=== PATIENT | male | born 1965 | race Caucasian/White ===

== ENCOUNTER 2020-03-15 09:27 | Outpatient (REF) | payer BC, SELFPAY ==
[2020-03-15 11:21] LABS: MANUAL DIFF FLAG NO
[2020-03-15 11:30] LABS: Basophils Absolute Auto 0.1 X10*3/uL (0.0-0.2); Basophils Percent Auto 0.5 % (0-2); Eosinophils Absolute Auto 0.1 X10*3/uL (0.0-0.4); Hematocrit 46.8 % (42-52); Hemoglobin 16.3 g/dl (14.0-18.0); Imm Gran Abs Auto 0.04 X10*3/uL (0.00-0.03); Imm Gran Pct Auto 0.4 % (0.0-0.4); Lymphocytes Absolute Auto 2.3 X10*3/uL (1.2-4.9); Lymphocytes Percent Auto 23.8 % (20-40); Mean Corpuscular HGB Conc 34.8 g/dl (31.0-36.0); Mean Corpuscular Volume 91.9 fL (80-98); Mean Platelet Volume 8.3 fL (9.4-12.4); Monocytes Absolute Auto 0.7 X10*3/uL (0.1-1.2); Monocytes Percent Auto 6.7 % (2-11); Neutrophils Absolute Auto 6.6 X10*3/uL (2.0-8.3); Neutrophils Percent Auto 67.6 % (45-73); Platelet Count 334 X10*3/uL (160-400); Red Blood Count 5.09 X10*6/uL (4.60-5.80); Red Cell Distribution Width 12.9 % (11.0-16.0); White Blood Count 9.8 X10*3/uL (4.8-10.8)
[2020-03-15 12:30] LABS: Alanine Aminotransferase 15 U/L (0-40); Anion Gap 14 (12-20); Aspartate Amino Transferase 15 U/L (5-37); Blood Urea Nitrogen 7 mg/dL (9-16); Calcium 8.9 mg/dL (8.4-10.2); Carbon Dioxide 27 mmol/L (22-29); Chloride 103 mmol/L (96-108); Cholesterol 145 mg/dL; Estimated Glomerular Filt Rate > 60; Glucose Fasting 78 mg/dL (60-99); HDL Cholesterol 47 mg/dL; LDL Cholesterol Calculated 76 mg/dl; Sodium 140 mmol/L (135-145); Triglycerides 113 mg/dL
[2020-03-15 13:28] LABS: Vitamin B12 166 pg/mL (200-900)
== END 2020-03-15 09:28 | disposition home or self-care (01) ==
LOC: HO.HMGCLDS 09:27
PROVIDERS: PCP Internal Medicine; Visit Provider Internal Medicine
DX: Z00.01 Encounter for general adult medical examination with abnormal findings (principal); K50.812 Crohn's disease of both small and large intestine with intestinal obstruction; F51.01 Primary insomnia; I10 Essential (primary) hypertension
CPT/HCPCS: 36415; 80048; 80061; 82607; 82746; 84450; 84460; 85025

== ENCOUNTER 2021-03-25 09:02 | Outpatient (REF) | payer OTHER, SELFPAY ==
[2021-03-25 12:16] LABS: Alanine Aminotransferase 15 U/L (0-40); Anion Gap 14 (12-20); Aspartate Amino Transferase 14 U/L (5-37); Blood Urea Nitrogen 11 mg/dL (9-16); Calcium 8.9 mg/dL (8.4-10.2); Carbon Dioxide 22 mmol/L (22-29); Chloride 107 mmol/L (96-108); Cholesterol 171 mg/dL; Estimated Glomerular Filt Rate > 60; Glucose Fasting 83 mg/dL (60-99); HDL Cholesterol 49 mg/dL; LDL Cholesterol Calculated 82 mg/dl; Potassium 3.8 mmol/L (3.3-5.1); Sodium 139 mmol/L (135-145); Triglycerides 201 mg/dL
[2021-03-25 12:21] LABS: PSA,Total (Free>4and<10) 1.64 ng/mL (0.00-4.00); Vitamin D 25-OH Total 15.6 ng/mL (>30)
== END 2021-03-25 09:03 | disposition home or self-care (01) ==
LOC: HO.HMGCLDS 09:02
PROVIDERS: PCP Internal Medicine; Visit Provider Internal Medicine
DX: Z00.01 Encounter for general adult medical examination with abnormal findings (principal); Z12.5 Encounter for screening for malignant neoplasm of prostate; Z20.822 Contact with and (suspected) exposure to COVID-19; K50.90 Crohn's disease, unspecified, without complications; G47.00 Insomnia, unspecified; I10 Essential (primary) hypertension
CPT/HCPCS: 36415; 80048; 80061; 82306; 84153; 84450; 84460

== ENCOUNTER 2021-07-16 08:56 | Outpatient (REF) | payer OTHER, SELFPAY ==
[2021-07-16 12:08] LABS: Anion Gap 13 (12-20); Blood Urea Nitrogen 12 mg/dL (9-16); Calcium 9.2 mg/dL (8.4-10.2); Carbon Dioxide 26 mmol/L (22-29); Chloride 104 mmol/L (96-108); Estimated Glomerular Filt Rate > 60; Glucose Fasting 88 mg/dL (60-99); Sodium 139 mmol/L (135-145)
[2021-07-16 12:27] LABS: Folate 7.3 ng/mL (> or = 4.0); Vitamin B12 < 146 pg/mL (200-900)
[2021-07-21 09:01] LABS: SARS COV2 IgG Negative (Negative)
== END 2021-07-16 08:57 | disposition home or self-care (01) ==
LOC: HO.HMGCLDS 08:56
PROVIDERS: PCP Internal Medicine; Visit Provider Internal Medicine
DX: Z00.01 Encounter for general adult medical examination with abnormal findings (principal); G47.00 Insomnia, unspecified; K50.90 Crohn's disease, unspecified, without complications; I10 Essential (primary) hypertension; E55.9 Vitamin D deficiency, unspecified; E53.8 Deficiency of other specified B group vitamins; Z20.822 Contact with and (suspected) exposure to COVID-19
CPT/HCPCS: 36415; 80048; 82607; 82746; 86769

== ENCOUNTER 2022-03-11 07:47 | Outpatient (REF) | payer OTHER, SELFPAY ==
[2022-03-11 12:21] LABS: Alanine Aminotransferase 8 U/L (0-40); Anion Gap 10 (12-20); Aspartate Amino Transferase 12 U/L (5-37); Blood Urea Nitrogen 12 mg/dL (9-16); Carbon Dioxide 28 mmol/L (22-29); Chloride 108 mmol/L (96-108); Cholesterol 144 mg/dL; Estimated Glomerular Filt Rate > 60; Glucose Fasting 86 mg/dL (60-99); HDL Cholesterol 40 mg/dL; LDL Cholesterol Calculated 77 mg/dl; Potassium 3.7 mmol/L (3.3-5.1); Sodium 142 mmol/L (135-145); Triglycerides 139 mg/dL; Vitamin D 25-OH Total 29.3 ng/mL (>30)
[2022-03-11 12:38] LABS: Folate 6.8 ng/mL (> or = 4.0); Vitamin B12 236 pg/mL (200-900)
== END 2022-03-11 07:48 | disposition home or self-care (01) ==
LOC: HO.HMGCLDS 07:47
PROVIDERS: PCP Internal Medicine; Visit Provider Internal Medicine
DX: E53.8 Deficiency of other specified B group vitamins (principal); E55.9 Vitamin D deficiency, unspecified; K50.812 Crohn's disease of both small and large intestine with intestinal obstruction; I10 Essential (primary) hypertension
CPT/HCPCS: 36415; 80048; 80061; 82306; 82607; 82746; 84450; 84460

== ENCOUNTER 2022-03-18 12:24 | Outpatient (AMB) | payer OTHER, SELFPAY ==
--- NOTE | 2022-03-18 13:00 | MHC.PC.OV ---
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 Brother No problems noted. Son No problems noted. Social History Housing: House Alcohol intake: current Alcohol intake frequency: a few times a week Patient Tobacco Use Status: Never used Tobacco e-Cigarette/Vaping Use: Never Used service: No Current occupational status: employed Cognitive needs: No Hearing needs: No Vision needs: Yes Questionnaire Thrive Questionnaire Date Thrive assessed: 07/18/21 STANISLAV-7 AMB Questionnaire STANISLAV-7 Date STANISLAV - 7 assessed: 07/18/21 Source: Developed by Drs. Michael Prakash, Michelle Motley, Jose Tabor and colleagues, with an educational ariel from [employer]. Physical exam (Primary Care) Tobacco/Smoking Status: Tobacco use Status Tobacco use date assessed 07/18/21 07/18/21 14:38 Patient Tobacco Use Status Never used Tobacco 07/18/21 14:35 e-Cigarette/Vaping Use Never Used 07/18/21 14:35 Thrive Assessment: Date of Thrive Assessment Date Thrive assessed 07/18/21 07/18/21 14:44 Coding
--- NOTE | 2022-03-18 13:03 | A.OFFPC_ITS ---
Vital Signs 03/18/22 13:04 Height 5 ft 11 in Weight 214 lb BMI 29.8 BP 122/84 Blood Pressure Location Rt brachial Position Sitting Pulse 78 Pulse Source Pulse Oximeter Pulse Oximetry (%) 96 Oxygen Delivery Method Room Air Intake Visit Reasons: Annual PE Intake Note: Pt is here today for his PE Allergies No Known Allergies Allergy (Verified 05/04/23 09:53) Medication List - Last Reconciled 03/18/22 by Germaine Stark MD cyanocobalamin (vitamin B-12) 1,000 mcg IM QWEEK 3 months lisinopril 5 mg PO DAILY zolpidem ER 12.5 mg PO BEDTIME PRN Tobacco use date assessed: 03/18/22 HPI Annual PE HPI Details 56-year-old male history of Crohn's disease, insomnia, hypertension, vitamin-D and vitamin B12 deficiency, here today for his physical exam. He has been feeling well except for intermittent episodes of posterior headache accompanied by pain in posterior neck, worse after sitting in for the computer for extended periods of time. Patient was receiving chiropractic treatment in the past which has helped. Has been taking ibuprofen as needed which afforded only temporary relief. His vitamin B12 level is now within normal limits, but still experiencing intermittent episodes of numbness and tingling in feet and lower extremities. Blood pressure stable controlled on lisinopril 5 mg daily. Up-to-date with screening colonoscopy [place] [address] Chan, repeat in 10 years. Still having frequent episodes of loose stools, and occasional anal leakage. Has history of central retinal vein occlusion left eye, seen by Dr. Rodriges earlier this year who states that his occlusion has improved, normal findings in right eye Had recent fasting labs done with results as follows below: ENTERED: 03/11/[address]: ORDERED: Met Pro f Fast, AST, ALT, Lipid Panel, Vitam in D 25-OH Test Result Flag Referen ce Sit e Sodium 142 135-145 mmol/L Potassium 3 .7 3.3-5.1 mm ol/L CL 108 96-108 mmol/ L CO2 28 22-29 mmol/L Gap 10 L 12-20 BUN 12 9-16 mg/dL Creat 1.00 0. 5-1.4 mg/dL EGFR > 60 NOTE: Fo r -[place] individuals, mult iply the result by 1.2 10. Chronic Kidney Di sease: Estimated GFR < 60 mL/min/1. 73m2 Severe Kidney Disease: Estimated GFR < 15 mL/min/1.73m2 F BS 8 6 60-99 mg/dL CA 9.0 8.4-10.2 mg/d L AST ( GOT) 12 5-37 U/L ALT (GP T) 8 0-40 U/L Triglycer billy 139 m g/dL Desira ble Triglyceride: less than 15 0 mg/dL Bor derline High Trigl yceride 150-199 m g/dL High T riglyceride: 200-499 mg/d L Very High Triglyceride: greater than or equal to 5OO mg/ dL Chol 144 mg/dL Desirable Cholesterol: less than 200 mg /dL Borderl ine High Cholester ol: 200-239 mg/dL High [place] sterol: greater than 239 mg/dL LDL Calcu lated 77 m g/dl Desira ble LDL: less than 100 mg/dL Near Optimal/Above Optimal LDL: 110 -129 mg/dL Borderline High LD L: 130 -159 mg/dL High LDL: 160 -189 mg/dL Very High LDL: gre ater than or equal to 190 mg/dL HDL 40 mg/dL Desirable HDL : greater than 40 mg/dL Note: Th is HDL assay may g kate artificially low re sults in patients with liver disease . 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 Brother No problems noted. Son No problems noted. Social History Housing: House Alcohol intake: current Alcohol intake frequency: a few times a week Patient Tobacco Use Status: Never used Tobacco e-Cigarette/Vaping Use: Never Used service: No Current occupational status: employed Cognitive needs: No Hearing needs: No Vision needs: Yes Questionnaire PHQ-9 Over the last 2 weeks, how often have you been bothered by any of the following problems? 1. Little interest or pleasure in doing things: not at all 2. Feeling down, depressed, or hopeless: not at all 3. Trouble falling or staying asleep, or sleeping too much: more than half the days 4. Feeling tired or having little energy: not at all 5. Poor appetite or overeating: not at all 6. Feeling bad about yourself - or that you are a failure or have let yourself or your family down: not at all 7. Trouble concentrating on things, such as reading the newspaper or watching television: not at all 8. Moving or speaking so slowly that other people could have noticed. Or the opposite - being so fidgety or restless that you have been moving around a lot more than usual: not at all 9. Thoughts that you would be better off or of hurting yourself in some way: not at all Total score: 2 Depression Screening Interpretation: Negative 52152 - PHQ-9 Billing: Yes Source: Developed by Drs. Michael Prakash, Jose Keane and colleagues, with an educational ariel from [employer]. Thrive Questionnaire Date Thrive assessed: 07/18/21 STANISLAV-7 AMB Questionnaire STANISLAV-7 Date STANISLAV - 7 assessed: 07/18/21 Source: Developed by Drs. Michael Prakash, Jose Keane and colleagues, with an educational ariel from [employer]. Review of Systems Const Denies body aches, Denies fatigue, Denies fever(s), Denies lethargy and Denies weakness Eyes Reports change in vision, Denies eye discharge and Denies itchy eyes ENT Reports Normal hearing present, Denies dizziness, Denies nasal congestion, Den ies nasal discharge and Denies sore throat Card Denies chest pain, Denies lightheadedness, Denies palpitations and Denies dyspnea Resp Denies chest congestion, Denies cough, Denies dyspnea and Denies wheezing GI Denies abdominal pain, Denies change in bowel habits and Denies heartburn Denies dysuria, Denies urinary frequency and Denies urinary urgency Musc Reports as per HPI Skin/Breast Denies lesions and Denies rash Neuro Reports Normal hearing present, Denies dizziness, Denies Sensory deficit (Neuro) and Denies weakness Psych Reports no additional complaints Endo Denies fatigue, Denies polydipsia, Denies polyuria and Denies palpitations Jose/Lymph Denies easy bruising Aller/Immun Denies itchy eyes, Denies seasonal rhinorrhea and Denies wheezing Physical exam (Primary Care) Vital Signs: Last Vital Signs Pulse 78 03/18/22 13:04 BP 122/84 03/18/22 13:04 Pulse Ox 96 03/18/22 13:04 Oxygen Delivery Method Room Air 03/18/22 13:04 BMI result Body Mass Index 29.8 Tobacco/Smoking Status: Tobacco use Status Tobacco use date assessed 03/18/22 03/18/22 13:05 Patient Tobacco Use Status Never used Tobacco 03/18/22 13:05 e-Cigarette/Vaping Use Never Used 03/18/22 13:05 PHQ-9: PHQ-9 Score PHQ-9: Total score 2 04/09/22 04:54 Depression Screening Interpretation: Negative Thrive Assessment: Date of Thrive Assessment Date Thrive assessed 07/18/21 03/18/22 13:05 Const General: comfortable and no acute distress Nutritional Appearance: obese Orientation/consciousness: patient oriented x3 HENMT Other: Moist oral mucosa Neck Neck: Yes full ROM, Yes no lymphadenopathy and Yes supple Resp Auscultation: clear to auscultation bilaterally Cardio Other: S1-S2 present regular rate and rhythm GI Other: Normal bowel sounds, soft, nontender, no mass palpated Male General Exam: Yes normal external exam Back/Spine/Pelvis Other: slight tenderness on palpation over paraspinal muscles and cervical area and over left interscapular area, full range of motion noted Skin General skin exam: no rashes or lesions noted Neuro General: patient oriented x3 Cranial nerves: Yes Normal hearing present Sensory Exam: No Sensory deficit (Neuro) Extrem General: Yes full ROM, Yes no joint enlargement and Yes no pedal edema Psych Appearance: grossly normal and well kempt Mental Status: mental status grossly normal Speech and movement: Normal speech and movement present Affect: normal affect Attitude: cooperative Thought process: Normal thought process present Assessment and Plan Assessment & Plan (1) Annual visit for general adult medical examination with abnormal findings: Code(s): Z00.01 - Encounter for general adult medical examination with abnormal findings Plan: Reviewed recent fasting labs which showed normal lipids and fasting blood sugar levels, low normal vitamin D level and normal vitamin B12 level. Continue with regular dental visit every 6 months and regular eye exams, currently being seen by Dr. Rodriges.. Take adequate calcium in diet and vitamin-D 3 at 2000 IU per cap once a day, in addition to weight-bearing exercises to help aintain good muscle tone and weight control. Instructed to do self-testicular exam to check for mass. Is up-to-date with his COVID vaccine including the bivalent booster, up-to-date with his flu shot and Tdap, (2) Crohn's disease: Comment: ff'd by Dr pettit/Dustin, currently asymptomatic except for some mucous discharge mixing occasionally with bowel movement Code(s): K50.90 - Crohn's disease, unspecified, without complications Qualifiers: Digestive disease complication type: with intestinal obstruction Gastrointestinal tract location: small and large intestine Qualified Code(s): K50.812 - Crohn's disease of both small and large intestine with intestinal obstruction Plan: Currently being followed by Dr. Chan up-to-date with his colonoscopy (3) Insomnia: Code(s): G47.00 - Insomnia, unspecified Qualifiers: Insomnia type: primary Qualified Code(s): F51.01 - Primary insomnia Plan: Takes zolpidem ER as needed (4) Essential hypertension: Code(s): I10 - Essential (primary) hypertension Plan: Blood pressure at goal of less than 130/80. Continue with current medication. Reinforced importance of following a low sodium diet, getting regular exercise, and lowering stress levels. (5) Vitamin D deficiency: Code(s): E55.9 - Vitamin D deficiency, unspecified Plan: Advised to take vitamin-D 3, qepr-agl-faejjbi 2000 units per tablet once a day (6) Vitamin B12 deficiency: Code(s): E53.8 - Deficiency of other specified B group vitamins Plan: Continue with vitamin B12 supplementation IM every week (7) Cervicalgia: Code(s): M54.2 - Cervicalgia Plan: Referred to physical therapy for further evaluation and management. Take Tylenol 500 mg every 8 hours as needed for pain control, try applying Salonpas patch to affected areas twice a day as needed. Medications: Changed From cyanocobalamin (vitamin B-12) 1,000 mcg IM QWEEK 4 weeks 4 mL 2RF E53.8 - Deficiency of other specified B group vitamins To cyanocobalamin (vitamin B-12) 1,000 mcg IM QWEEK 13 mL 4RF 3 months E53.8 - Deficiency of other specified B group vitamins Coding Level of Care Code Est Pt Prev Care 40-64y(73029) Diagnoses Annual visit for general adult medical examination with abnormal findings Z00.01 Crohn's disease of both small and large intestine with intestinal obstruction K50.812 Digestive disease complication type: with intestinal obstruction Gastrointestinal tract location: small and large intestine Primary insomnia F51.01 Insomnia type: primary Essential hypertension I10 Vitamin D deficiency E55.9 Vitamin B12 deficiency E53.8 Cervicalgia M54.2
[2022-03-18 13:04] VITALS: BP 122/84; PULSE 78; O2SAT 96; BMI 29.8
== END 2022-03-18 13:28 | disposition home or self-care (01) ==
LOC: HO.HMGC 12:24
PROVIDERS: PCP Internal Medicine; Visit Provider Internal Medicine
DX: Z00.01 Encounter for general adult medical examination with abnormal findings (principal); K50.812 Crohn's disease of both small and large intestine with intestinal obstruction; F51.01 Primary insomnia; I10 Essential (primary) hypertension; E55.9 Vitamin D deficiency, unspecified; E53.8 Deficiency of other specified B group vitamins; M54.2 Cervicalgia
CPT/HCPCS: 99499

== ENCOUNTER 2022-05-13 09:00 | Outpatient (RCR) | payer OTHER, SELFPAY ==
--- NOTE | 2022-04-15 08:41 | MHC.PT.EP ---
[facility] [place] Office [place] Office [place] Office [address] Alphonso Dias [address] [phone] F: [phone] F: [phone] F: [phone] F: [phone] Physical Therapy Plan of Care Date of Evaluation: Date of Surgery: n/a Diagnosis: cervicalgia Assessment: Patient is a 56 year male presenting to PT with complaints of pain in his neck with headaches. Pt reports onset of pain began about 1 year ago due to insidious onset. He presents today with impairments in pain, headaches, numbness and tingling, and posture. 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 Clinical presentation today is most consistent with signs and sx associated with headaches likely due to myofascial restrictions and pt will benefit from skilled PT to address the following problems and impairments noted upon evaluation: pain, headaches, numbness and tingling, and posture. These problems limit the patient with the following functional activities: ADLs, work. The prescribed treatment plan of care is medically necessary. Co-morbidities of HTN were identified and taken into considerations of plan of care. Pt was educated on HEP, role of PT, prognosis, POC. Frequency and Duration: The patient will be seen 2 x week x 4 weeks Short Term Goals: Pt will demonstrate compliance with initial HEP in 2 visits. Pt will demonstrate improved postural awareness by sitting with biomechanically correct posture without cues throughout session to improve overall postural function in 2 weeks. Pt will demonstrate less incidence of numbness and tingling in 2 weeks. Shelter Goals: Pt will demonstrate improved NDI score by 10% in 4 weeks for improved functional mobility. Pt will demonstrate improved headaches as evidence by waking with a headache <2 times a week in 4 weeks for improved QOL. Treatment Plan: Modalities to reduce pain, spasms and effusion. Manual therapy to restore motion and function. Therapeutic exercise to improve strength and flexibility. Neuromuscular re-education for posture and balance. Therapeutic activities to return to functional activities of daily living. Electronically signed by: Bernadette Heredia, PT, DPT, ATC Please sign and return to therapist. Thank you for your referral.
--- NOTE | 2022-06-12 13:10 | MHC.PT.DC ---
[facility] [place] Office [place] Office [place] Office [address] Alphonso Dias [address] [phone] F: [phone] F: [phone] F: [phone] F: [phone] Physical Therapy Discharge Report Diagnosis: cervicalgia Date of Surgery: n/a Date of Evaluation: 04/15/22 Date of Discharge: 06/12/22 Treatments to Date: 5 Cancellations to Date: 0 No Shows to Date: 0 Discharge Status: Achieved Goals Improved Function Independent with HEP Discharge Summary: Pt was placed on 30 day hold as he was feeling better and wanted to manage sx on his own. 30 days has passed and he has not returned so pt to be d/c at this time. Electronically signed by: Bernadette Heredia, PT, DPT, ATC Please sign and return to therapist. Thank you for your referral.
== END 2022-06-12 13:11 | disposition home or self-care (01) ==
LOC: HO.PTCHIC 09:00
PROVIDERS: PCP Internal Medicine; Visit Provider Internal Medicine
DX: M54.2 Cervicalgia (principal)
CPT/HCPCS: 97110; 97140; 97161

== ENCOUNTER 2023-05-04 08:56 | Outpatient (AMB) | payer OTHER, SELFPAY ==
--- NOTE | 2023-05-04 09:07 | A.OFFPC_ITS ---
Vital Signs 05/04/23 09:09 Height 5 ft 11 in Weight 219 lb 4 oz BMI 30.6 BP 126/88 Blood Pressure Location Lt brachial Position Sitting Pulse 73 Pulse Source Pulse Oximeter Pulse Oximetry (%) 98 Oxygen Delivery Method Room Air Intake Visit Reasons: Annual PE Allergies No Known Allergies Allergy (Verified 05/04/23 09:53) Medication List - Last Reconciled 05/04/23 by Germaine Stark MD lisinopril 5 mg PO DAILY Tobacco use date assessed: 05/04/23 Dental Screening Dental Screen Date: 05/04/23 Did you have a dental visit in the last 12 months?: Yes Did you have a dental problem in the last 6 months where you did not have access to dental care?: No Was dental information given to patient?: Patient has dentist HPI Annual PE HPI Details 57-year-old male with Crohn's disease cu rrently followed by GI, hypertension, history of vitamin-D deficiency and vitamin B12 deficiency as well as 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 He has still been having occasional episodes of insomnia, but uses CBD gummy and stopped using zolpidem he states that both work the same way. He has stopped giving himself his vitamin B12 injections, keeps forgetting to schedule an appointment to get it injected. His blood pressure remains well controlled . [facility] Medical History Vitamin B12 deficiency Vitamin D deficiency Essential hypertension Hemispheric central retinal vein occlusion (CRVO) of left eye Insomnia Crohn's disease Surgical History H/O resection of small bowel History of colonoscopy History of appendectomy History of vasectomy Family History Father CVD (cardiovascular disease) Mother Stroke Diabetes mellitus Brother No problems noted. Brother No problems noted. Son No problems noted. Social History Housing: House Alcohol intake: current Alcohol intake frequency: a few times a week Patient Tobacco Use Status: Never used Tobacco e-Cigarette/Vaping Use: Never Used service: No Current occupational status: employed Cognitive needs: No Hearing needs: No Vision needs: Yes Questionnaire PHQ-9 Over the last 2 weeks, how often have you been bothered by any of the following problems? 1. Little interest or pleasure in doing things: not at all 2. Feeling down, depressed, or hopeless: not at all 3. Trouble falling or staying asleep, or sleeping too much: more than half the days 4. Feeling tired or having little energy: not at all 5. Poor appetite or overeating: not at all 6. Feeling bad about yourself - or that you are a failure or have let yourself or your family down: not at all 7. Trouble concentrating on things, such as reading the newspaper or watching television: not at all 8. Moving or speaking so slowly that other people could have noticed. Or the opposite - being so fidgety or restless that you have been moving around a lot more than usual: not at all 9. Thoughts that you would be better off or of hurting yourself in some way: not at all Total score: 2 Depression Screening Interpretation: Negative Depression Screening Done: Yes 60299 - PHQ-9 Billing: Yes Source: Developed by Drs. Michael Prakash, Michelle Motley, Jose Tabor and colleagues, with an educational ariel from [employer]. Thrive Questionnaire Date Thrive assessed: 05/04/23 I am a: Patient What is your living situation today?: I have a steady place to live Within the past 12 months, did the food you bought not last and you didn't have the money to get more?: Never true Within the past 12 months, did you worry whether your food would run out before you got money to buy more?: Never true Do you have trouble paying for medicines?: No Do you have trouble getting transportation to medical appointments?: No Do you have trouble paying your heating and electricity bill?: No Do you have trouble taking care of your child, family member or friend?: No Do you have trouble with day-to-day activities such as bathing, preparing meals, shopping, managing finances, etc.?: No Are you currently unemployed and looking for a job?: No Are you interested in more education?: No AUDIT C Alcohol Use Questionnaire (AUDIT-C) 1. How often do you have a drink containing alcohol?: Monthly or less 2. How many drinks containing alcohol do you have on a typical day when you are drinking?: 1 or 2 3. How often do you have six or more drinks on one occasion?: Never Total Score: 1 Score Reviewed/Action Taken: Yes STANISLAV-7 AMB Questionnaire STANISLAV-7 Date STANISLAV - 7 assessed: 05/04/23 Feeling nervous, anxious, or on edge: 0 = Not at all Not being able to stop or control worryin = Not at all Worrying too much about different things: 0 = Not at all Trouble relaxin = Not at all Being so restless that it is hard to sit still: 0 = Not at all Becoming easily annoyed or irritable: 0 = Not at all Feeling afraid as if something awful might happen: 0 = Not at all Total STANISLAV-7 score (0-4 normal; 5-9 mild; 10-14 moderate; 15-21 severe): 0 Source: Developed by Drs. Michael Prakash, Michelle Motley, Jose Tabor and colleagues, with an educational ariel from [employer]. STANISLAV-7 Assessment Billing STANISLAV-7 Assessment Tool: STANISLAV-7 Assessment 36244 Review of Systems Const Denies body aches, Denies fatigue, Denies fever(s), Denies lethargy and Denies weakness Eyes Denies eye discharge and Denies itchy eyes ENT Reports Normal hearing present, Denies dizziness, Denies nasal congestion, Denies nasal discharge and Denies sore throat Card Denies chest pain, Denies lightheadedness, Denies palpitations and Denies dyspnea Resp Denies chest congestion, Denies cough, Denies dyspnea and Denies wheezing GI Denies abdominal pain, Denies change in bowel habits and Denies heartburn Denies dysuria, Denies urinary frequency and Denies urinary urgency Musc Denies back pain, Reports arthralgias (knees ), Denies joint swelling and Reports stiffness Skin/Breast Denies lesions and Denies rash Neuro Reports Normal hearing present, Denies dizziness, Denies Sensory deficit (Neuro) and Denies weakness Psych Reports no additional complaints Endo Denies fatigue, Denies polydipsia, Denies polyuria and Denies palpitations Jose/Lymph Denies easy bruising Aller/Immun Denies itchy eyes, Denies seasonal rhinorrhea and Denies wheezing Physical exam (Primary Care) Vital Signs: Last Vital Signs Pulse 73 05/04/23 09:09 BP 126/88 05/04/23 09:09 Pulse Ox 98 05/04/23 09:09 Oxygen Delivery Method Room Air 05/04/23 09:09 BMI result Body Mass Index 30.6 Tobacco/Smoking Status: Tobacco use Status Tobacco use date assessed 05/04/23 05/04/23 09:12 Patient Tobacco Use Status Never used Tobacco 05/04/23 09:09 e-Cigarette/Vaping Use Never Used 05/04/23 09:09 Depression Screening Interpretation: Negative Thrive Assessment: Date of Thrive Assessment Date Thrive assessed 07/18/21 05/04/23 09:09 Const General: comfortable and no acute distress Nutritional Appearance: obese Orientation/consciousness: patient oriented x3 HENMT Other: Moist oral mucosa Eyes General: appearance normal, both eyes and all related structures Neck Neck: Yes full ROM, Yes no lymphadenopathy and Yes supple Chest Chest palpation & inspection: normal inspection of the chest Resp Auscultation: clear to auscultation bilaterally Cardio Other: S1-S2 present regular rate and rhythm GI Other: Normal bowel sounds, soft, nontender, no mass palpated General: Yes no CVA tenderness Male General Exam: Yes normal external exam Back/Spine/Pelvis Back: no CVA tenderness and No back tenderness Skin General skin exam: no rashes or lesions noted Neuro General: patient oriented x3 Cranial nerves: Yes Normal hearing present Sensory Exam: No Sensory deficit (Neuro) Extrem General: Yes full ROM, Yes no joint enlargement and Yes no pedal edema Psych Appearance: grossly normal and well kempt Mental Status: mental status grossly normal Speech and movement: Normal speech and movement present Affect: normal affect Attitude: cooperative Thought process: Normal thought process present Assessment and Plan Assessment & Plan (1) Annual visit for general adult medical examination with abnormal findings: Code(s): Z00.01 - Encounter for general adult medical examination with abnormal findings Plan: Will check appropriate labs. Continued regular dental visit every 6 months and regular eye exams, at least every 2 years. Take adequate calcium in diet and vitamin-D 3 at 2000 IU per cap once a day, in addition to weight-bearing exercises to help maintain good muscle tone and weight control. Instructed to do testicular exam to check for any mass up-to-date is vaccines but declines getting COVID vaccination booster. Reminded to get his shingles vaccination. Up-to-date with his screening colonoscopy (2) Vitamin B12 deficiency: Code(s): E53.8 - Deficiency of other specified B group vitamins Plan: Will check vitamin B12 level (3) Essential hypertension: Code(s): I10 - Essential (primary) hypertension Plan: Blood pressure at goal of less than 130/80. Continue with current medication. Reinforced importance of following a low sodium diet, getting regular exercise, and lowering stress levels. (4) Crohn's disease: Comment: ff'd by Dr pettit/Dustin, currently asymptomatic except for some mucous discharge mixing occasionally with bowel movement Code(s): K50.90 - Crohn's disease, unspecified, without complications Qualifiers: Digestive disease complication type: with intestinal obstruction Gastrointestinal tract location: small and large intestine Qualified Code(s): K50.812 - Crohn's disease of both small and large intestine with intestinal obstruction Plan: Up-to-date with his screening colonoscopy, sees Dr. Castrejon (5) Vitamin D deficiency: Code(s): E55.9 - Vitamin D deficiency, unspecified Plan: Will check vitamin-D level (6) Prostate cancer screening: Code(s): Z12.5 - Encounter for screening for malignant neoplasm of prostate Plan: Total PSA and free T4 Orders: Orders Complete Blood Count Auto Diff 05/04/23 E53.8 - Deficiency of other specified B group vitamins, E55.9 - Vitamin D deficiency, unspecified, I10 - Essential (primary) hypertension, K50.90 - Crohn's disease, unspecified, without complications, Z00.01 - Encounter for general adult medical examination with abnormal findings, Z12.5 - Encounter for screening for malignant neoplasm of prostate Vitamin B12 and Folate 05/04/23 E53.8 - Deficiency of other specified B group vitamins, E55.9 - Vitamin D deficiency, unspecified, I10 - Essential (primary) hypertension, K50.90 - Crohn's disease, unspecified, without complications, Z00.01 - Encounter for general adult medical examination with abnormal findings, Z12.5 - Encounter for screening for malignant neoplasm of prostate Vitamin D 25-OH Total 05/04/23 E53.8 - Deficiency of other specified B group vitamins, E55.9 - Vitamin D deficiency, unspecified, I10 - Essential (primary) hypertension, K50.90 - Crohn's disease, unspecified, without complications, Z00.01 - Encounter for general adult medical examination with abnormal findings, Z12.5 - Encounter for screening for malignant neoplasm of prostate Basic Metabolic Panel Fasting 05/04/23 E53.8 - Deficiency of other specified B group vitamins, E55.9 - Vitamin D deficiency, unspecified, I10 - Essential (primary) hypertension, K50.90 - Crohn's disease, unspecified, without complications, Z00.01 - Encounter for general adult medical examination with abnormal findings, Z12.5 - Encounter for screening for malignant neoplasm of prostate PSA,Total (Free>4and<10) 05/04/23 E53.8 - Deficiency of other specified B group vitamins, E55.9 - Vitamin D deficiency, unspecified, I10 - Essential (primary) hypertension, K50.90 - Crohn's disease, unspecified, without complications, Z00.01 - Encounter for general adult medical examination with abnormal findings, Z12.5 - Encounter for screening for malignant neoplasm of prostate Lipid Panel 05/04/23 E53.8 - Deficiency of other specified B group vitamins, E55.9 - Vitamin D deficiency, unspecified, I10 - Essential (primary) hypertension, K50.90 - Crohn's disease, unspecified, without complications, Z00.01 - Encounter for general adult medical examination with abnormal findings, Z12.5 - Encounter for screening for malignant neoplasm of prostate Alanine Aminotransferase 05/04/23 E53.8 - Deficiency of other specified B group vitamins, E55.9 - Vitamin D deficiency, unspecified, I10 - Essential (primary) hypertension, K50.90 - Crohn's disease, unspecified, without complications, Z00.01 - Encounter for general adult medical examination with abnormal findings, Z12.5 - Encounter for screening for malignant neoplasm of prostate Aspartate Amino Transferase 05/04/23 E53.8 - Deficiency of other specified B group vitamins, E55.9 - Vitamin D deficiency, unspecified, I10 - Essential (primary) hypertension, K50.90 - Crohn's disease, unspecified, without complications, Z00.01 - Encounter for general adult medical examination with abnormal findings, Z12.5 - Encounter for screening for malignant neoplasm of prostate Coding Level of Care Code Est Pt Prev Care 40-64y(40276) Diagnoses Annual visit for general adult medical examination with abnormal findings Z00.01 Vitamin B12 deficiency E53.8 Essential hypertension I10 Crohn's disease of both small and large intestine with intestinal obstruction K50.812 Digestive disease complication type: with intestinal obstruction Gastrointestinal tract location: small and large intestine Vitamin D deficiency E55.9 Prostate cancer screening Z12.5 Additional Codes STANISLAV-7 Assessment Billing - STANISLAV-7 Assessment Tool: STANISLAV-7 Assessment [id number] ([id number])
[2023-05-04 09:09] VITALS: BP 126/88; PULSE 73; O2SAT 98; BMI 30.6
== END 2023-05-04 11:57 | disposition home or self-care (01) ==
PROVIDERS: PCP Internal Medicine; Visit Provider Internal Medicine
DX: Z00.00 Encounter for general adult medical examination without abnormal findings (principal); K50.812 Crohn's disease of both small and large intestine with intestinal obstruction; E53.8 Deficiency of other specified B group vitamins; I10 Essential (primary) hypertension; E55.9 Vitamin D deficiency, unspecified; Z12.5 Encounter for screening for malignant neoplasm of prostate
CPT/HCPCS: 99396

== ENCOUNTER 2023-05-04 09:52 | Outpatient (REF) | payer OTHER, SELFPAY | END 2023-05-04 09:53 | disposition home or self-care (01) | LOC: HO.HMGCLDS 09:52 | PROVIDERS: PCP Internal Medicine; Visit Provider Internal Medicine | DX: Z00.01 Encounter for general adult medical examination with abnormal findings (principal); Z12.5 Encounter for screening for malignant neoplasm of prostate; I10 Essential (primary) hypertension; E53.8 Deficiency of other specified B group vitamins; E55.9 Vitamin D deficiency, unspecified; K50.90 Crohn's disease, unspecified, without complications | CPT/HCPCS: 36415; 80048; 80061; 82306; 82607; 82746; 84153; 84450; 84460; 85025 ==

== ENCOUNTER 2023-08-07 13:36 | Outpatient (AMB) | payer OTHER, SELFPAY ==
[2023-08-07 14:36] VITALS: BP 128/76; PULSE 75; TEMP 36.8; O2SAT 98; BMI 32.5
--- NOTE | 2023-08-07 14:36 | MHC.OFFWIV ---
Intake Vital Signs 08/07/23 14:36 Height 5 ft 11 in Weight 233 lb BMI 32.5 BP 128/76 Blood Pressure Location Lt brachial Position Sitting Pulse 75 Pulse Source Pulse Oximeter Temp 98.2 F Temp Source Oral Pulse Oximetry (%) 98 Oxygen Delivery Method Room Air Intake Visit Reasons: Forearm, shoulder, back muscle pain (Lyme?) Intake Note: pt is here for c/o forearm and shoulder pain with headaches concern of possible lyme disease Patient Tobacco Use Status: Never used Tobacco Allergies No Known Allergies Allergy (Verified 08/07/23 14:38) Do you need a note to return to daycare/school/sports/work: No HPI HPI Comments History of Present Illness Details 58-year-old male complaining of myalgias in his forearms back shoulders for a week. He is concerned he might have Lyme as he was doing a lot of yd work and requested tests. He denies noticing any rash. [facility] Medical History Vitamin B12 deficiency Vitamin D deficiency Essential hypertension Hemispheric central retinal vein occlusion (CRVO) of left eye Insomnia Crohn's disease Surgical History H/O resection of small bowel History of colonoscopy History of appendectomy History of vasectomy Family History Father CVD (cardiovascular disease) Mother Stroke Diabetes mellitus Brother No problems noted. Brother No problems noted. Son No problems noted. Social History Housing: House Alcohol intake: current Alcohol intake frequency: a few times a week Patient Tobacco Use Status: Never used Tobacco e-Cigarette/Vaping Use: Never Used service: No Current occupational status: employed Cognitive needs: No Hearing needs: No Vision needs: Yes Review of Systems Const All systems reviewed & are unremarkable except as noted in HPI and below Physical Exam Vital Signs: Last Vital Signs Temp 98.2 F 08/07/23 14:36 Pulse 75 08/07/23 14:36 BP 128/76 08/07/23 14:36 Pulse Ox 98 08/07/23 14:36 Oxygen Delivery Method Room Air 08/07/23 14:36 BMI result Body Mass Index 32.5 Const General: healthy appearing and no acute distress HEENT Head: Yes normal to inspection, Yes normocephalic and Yes atraumatic Ears: hearing grossly normal bilaterally General nose exam: Normal external nose present Face and sinus: Yes normal facial exam Assessment & Plan Assessment & Plan (1) Myalgia: Code(s): M79.10 - Myalgia, unspecified site Plan: The patient had lab work drawn today for line. They will follow up when the results return Plan See plan Orders: Orders Lyme IgG/IgM w/reflex to WB Today M79.10 - Myalgia, unspecified site Coding Level of Care Code Est Pt Level 3 (73886) Diagnoses Myalgia M79.10
== END 2023-08-07 15:25 | disposition home or self-care (01) ==
PROVIDERS: PCP Internal Medicine; Visit Provider Physician Assistant Medical
DX: M79.10 Myalgia, unspecified site (principal)
CPT/HCPCS: 99213

== ENCOUNTER 2023-08-07 14:55 | Outpatient (REF) | payer OTHER, SELFPAY ==
[2023-08-10 17:43] LABS: Lyme Abs Screen <0.90 index
== END 2023-08-07 14:56 | disposition home or self-care (01) ==
LOC: HO.HMGCLDS 14:55
PROVIDERS: PCP Internal Medicine; Visit Provider Physician Assistant Medical
DX: M79.10 Myalgia, unspecified site (principal)
CPT/HCPCS: 36415; 86617; 86618

== ENCOUNTER 2023-09-08 08:20 | Outpatient (AMB) | payer OTHER, SELFPAY ==
[2023-09-08 08:39] VITALS: BP 102/74; PULSE 65; O2SAT 98; BMI 32.1
--- NOTE | 2023-09-08 08:39 | MHC.PC.OV ---
Vital Signs 09/08/23 08:39 Height 5 ft 11 in Weight 230 lb BMI 32.1 BP 102/74 Blood Pressure Location Lt brachial Position Sitting Pulse 65 Pulse Source Pulse Oximeter Pulse Oximetry (%) 98 Oxygen Delivery Method Room Air Intake Visit Reasons: Joint pain Intake Note: Pt is here today c/o joint pain and H/A Allergies No Known Allergies Allergy (Verified 09/08/23 09:08) Medication List - Last Reconciled 09/08/23 by Germaine Stark MD celecoxib 200 mg PO DAILY PRN cyanocobalamin (vitamin B-12) 1,000 mcg IM .[id number] 3 months eszopiclone 2 mg PO BEDTIME PRN lisinopril 5 mg PO DAILY syringe with needle, safety (BD SafetyGlide Syringe) As directed to inject B-12 monthly Tobacco use date assessed: 09/08/23 Dental Screening Dental Screen Date: 09/08/23 Did you have a dental visit in the last 12 months?: Yes Did you have a dental problem in the last 6 months where you did not have access to dental care?: No Was dental information given to patient?: Patient has dentist HPI Joint pain HPI Details 58-year-old male with history of Crohn's disease, vitamin B12 and vitamin-D deficiency, hypertension, here today complaining of recurrent pain in both elbow joints, the right more than the left which has been present now for the last 4 weeks. He has been taking ibuprofen which affords only partial relief. Denies any history of no heavy lifting or strenuous exertion. Has vitamin B12 deficiency, needs refills on his B12 and syringes. Just recently started taking it again April 2023 Has history of hypertension currently on lisinopril 5 mg once a day. Patient states that he frequently forgets taking it, did not take it this morning and his blood pressure is 102/74. Does get occasional episodes of lightheadedness and headache mainly in temporal area. Has history of bruxism Has been having difficulty sleeping at night, which is a chronic issue, previously was on zolpidem which stopped working. 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 Brother No problems noted. Son No problems noted. Social History Housing: House Alcohol intake: current Alcohol intake frequency: a few times a week Patient Tobacco Use Status: Never used Tobacco e-Cigarette/Vaping Use: Never Used service: No Current occupational status: employed Cognitive needs: No Hearing needs: No Vision needs: Yes Questionnaire Thrive Questionnaire Date Thrive assessed: 05/04/23 STANISLAV-7 AMB Questionnaire STANISLAV-7 Date STANISLAV - 7 assessed: 05/04/23 Source: Developed by Drs. Michael Prakash, Michelle Motley, Jose Tabor and colleagues, with an educational ariel from [email or web address]. Review of Systems Const Denies body aches, Denies fatigue, Denies fever(s), Denies lethargy and Denies weakness ENT Reports Normal hearing present, Denies nasal congestion, Denies nasal discharge and Denies sore throat Card Denies chest pain, Reports lightheadedness (Occasional), Denies palpitations and Denies dyspnea Resp Denies chest congestion, Denies cough, Denies dyspnea and Denies wheezing GI Denies abdominal pain, Denies change in bowel habits and Denies heartburn Denies dysuria, Denies urinary frequency and Denies urinary urgency Musc Reports as per HPI, Reports back pain (Lower back) and Reports stiffness Skin/Breast Denies lesions and Denies rash Neuro Reports Normal hearing present, Denies Sensory deficit (Neuro) and Denies weakness Psych Reports no additional complaints Endo Denies fatigue, Denies polydipsia, Denies polyuria and Denies palpitations Jose/Lymph Denies easy bruising Aller/Immun Denies seasonal rhinorrhea and Denies wheezing Physical exam (Primary Care) Vital Signs: Last Vital Signs Pulse 65 09/08/23 08:39 BP 102/74 09/08/23 08:39 Pulse Ox 98 09/08/23 08:39 Oxygen Delivery Method Room Air 09/08/23 08:39 BMI result Body Mass Index 32.1 Tobacco/Smoking Status: Tobacco use Status Tobacco use date assessed 09/08/23 09/08/23 08:42 Patient Tobacco Use Status Never used Tobacco 09/08/23 08:42 e-Cigarette/Vaping Use Never Used 09/08/23 08:42 Thrive Assessment: Date of Thrive Assessment Date Thrive assessed 05/04/23 09/08/23 08:42 Const General: comfortable and no acute distress Orientation/consciousness: patient oriented x3 Eyes General: appearance normal, both eyes and all related structures Neck Neck: Yes full ROM, Yes no lymphadenopathy and Yes supple Chest Chest palpation & inspection: normal inspection of the chest Resp Auscultation: clear to auscultation bilaterally Cardio Other: S1-S2 present regular rate and rhythm GI Other: Normal bowel sounds, soft, nontender, no mass palpated General: Yes no CVA tenderness Male General Exam: Yes normal external exam Back/Spine/Pelvis Back: no CVA tenderness and No back tenderness Skin General skin exam: no rashes or lesions noted Neuro General: patient oriented x3 Cranial nerves: Yes Normal hearing present Sensory Exam: No Sensory deficit (Neuro) Extrem Other: Mild swelling over forearm right more than the left, with tenderness on palpation, full range of motion of both elbows General: Yes full ROM and Yes no pedal edema Psych Appearance: grossly normal and well kempt Mental Status: mental status grossly normal Speech and movement: Normal speech and movement present Affect: normal affect Attitude: cooperative Thought process: Normal thought process present Assessment and Plan Assessment & Plan (1) Vitamin D deficiency: Code(s): E55.9 - Vitamin D deficiency, unspecified Plan: Will check vitamin D level (2) Vitamin B12 deficiency: Code(s): E53.8 - Deficiency of other specified B group vitamins Plan: Check vitamin B12 level, continue with B12 injections monthly refill sent (3) Essential hypertension: Code(s): I10 - Essential (primary) hypertension Plan: Blood pressure noted to be on the low side. Advised to check blood pressure at home keep a record of it and if persistently less than 120/80 and getting lightheaded, stop lisinopril (4) Pain, joint, forearm: Code(s): M25.539 - Pain in unspecified wrist Plan: Prescription sent for celecoxib 200 mg per capsule to take once a day with food as needed for pain, try massaging absorbent teresa to affected area once or twice a day as needed. Return to clinic if no improvement of symptoms (5) Chronic insomnia: Code(s): F51.04 - Psychophysiologic insomnia Plan: No relief with Ambien, prescription sent for eszopiclone 2 mg per tablet to take 1 tablet as needed at bedtime for insomnia. Twenty tablets with no refills Orders: Orders Vitamin B12 and Folate Today E53.8 - Deficiency of other specified B group vitamins, E55.9 - Vitamin D deficiency, unspecified Vitamin D 25-OH Total Today E53.8 - Deficiency of other specified B group vitamins, E55.9 - Vitamin D deficiency, unspecified Medications: New celecoxib 200 mg PO DAILY PRN 30 caps 1RF elbow pain eszopiclone 2 mg PO BEDTIME PRN 20 tabs 0RF insomnia Changed From cyanocobalamin (vitamin B-12) 1,000 mcg/ml intramuscularly. Inject 1 mL once a week for 4 weeks and then once monthly afterwards 3 months 13 mL 4RF E53.8 - Deficiency of other specified B group vitamins To cyanocobalamin (vitamin B-12) Inject IM once a month 1,000 mcg IM .[id number] 3 months 10 mL 4RF E53.8 - Deficiency of other specified B group vitamins Refilled syringe with needle, safety (BD SafetyGlide Syringe) As directed to inject B-12 monthly 5 ea 8RF E53.8 - Deficiency of other specified B group vitamins Coding Level of Care Code Est Pt Level 4 (43617) Diagnoses Vitamin D deficiency E55.9 Vitamin B12 deficiency E53.8 Essential hypertension I10 Pain, joint, forearm M25.539 Chronic insomnia F51.04
== END 2023-09-08 15:36 | disposition home or self-care (01) ==
PROVIDERS: PCP Internal Medicine; Visit Provider Internal Medicine
DX: E55.9 Vitamin D deficiency, unspecified (principal); E53.8 Deficiency of other specified B group vitamins; I10 Essential (primary) hypertension; M25.539 Pain in unspecified wrist; F51.04 Psychophysiologic insomnia
CPT/HCPCS: 99214

== ENCOUNTER 2023-09-08 09:07 | Outpatient (REF) | payer OTHER, SELFPAY ==
[2023-09-08 11:51] LABS: Vitamin D 25-OH Total 29.4 ng/mL (>30)
[2023-09-08 12:08] LABS: Folate 6.5 ng/mL (> or = 4.0); Vitamin B12 376 pg/mL (200-900)
== END 2023-09-08 09:08 | disposition home or self-care (01) ==
LOC: HO.HMGCLDS 09:07
PROVIDERS: PCP Internal Medicine; Visit Provider Internal Medicine
DX: E53.8 Deficiency of other specified B group vitamins (principal); E55.9 Vitamin D deficiency, unspecified
CPT/HCPCS: 36415; 82306; 82607; 82746

== ENCOUNTER 2023-11-11 10:30 | Outpatient (AMB) | payer OTHER, SELFPAY ==
[2023-11-11 10:36] VITALS: BP 120/90; PULSE 83; O2SAT 96; BMI 32.1
--- NOTE | 2023-11-11 10:36 | MHC.PC.OV ---
Vital Signs 11/11/23 10:36 Height 5 ft 11 in Weight 230 lb BMI 32.1 BP 120/90 H Blood Pressure Location Lt brachial Position Sitting Pulse 83 Pulse Source Pulse Oximeter Pulse Oximetry (%) 96 Oxygen Delivery Method Room Air Intake Visit Reasons: pain joints and Rt arm Intake Note: Pt is here today c/o joint pain and Rt arm pain and both grt toes Allergies No Known Allergies Allergy (Verified 11/11/23 10:42) Medication List - Last Reconciled 11/11/23 by Germaine Stark MD celecoxib 200 mg PO DAILY PRN cyanocobalamin (vitamin B-12) 1,000 mcg IM .[id number] 3 months syringe with needle, safety (BD SafetyGlide Syringe) As directed to inject B-12 monthly Tobacco use date assessed: 11/11/23 Dental Screening Dental Screen Date: 11/11/23 HPI pain joints and Rt arm HPI Details 58-year-old male with history of Crohn's disease, currently inactive per patient, last colonoscopy in 2018 showed benign findings done by Dr. Chan, here today complaining of recurrent pain only on movement in both big toes, and had some aching pain in his right forearm which has now resolved. Patient states pain is worse when he walks moves his toes. Denies any joint swelling, no redness, no increased warmth on digits, no history of any trauma. Has been taking Celebrex which has not helped, no relief with ibuprofen or naproxen. 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 Brother No problems noted. Son No problems noted. Social History Housing: House Alcohol intake: current Alcohol intake frequency: a few times a week Patient Tobacco Use Status: Never used Tobacco e-Cigarette/Vaping Use: Never Used service: No Current occupational status: employed Cognitive needs: No Hearing needs: No Vision needs: Yes Questionnaire PHQ-9 Over the last 2 weeks, how often have you been bothered by any of the following problems? 1. Little interest or pleasure in doing things: not at all 2. Feeling down, depressed, or hopeless: not at all 3. Trouble falling or staying asleep, or sleeping too much: not at all 4. Feeling tired or having little energy: not at all 5. Poor appetite or overeating: not at all 6. Feeling bad about yourself - or that you are a failure or have let yourself or your family down: not at all 7. Trouble concentrating on things, such as reading the newspaper or watching television: not at all 8. Moving or speaking so slowly that other people could have noticed. Or the opposite - being so fidgety or restless that you have been moving around a lot more than usual: not at all 9. Thoughts that you would be better off or of hurting yourself in some way: not at all Total score: 0 Depression Screening Interpretation: Negative Depression Screening Done: Yes 93349 - PHQ-9 Billing: Yes Source: Developed by Drs. Michael Prakash, Michelle Motley, Jose Tabor and colleagues, with an educational ariel from [employer]. Thrive Questionnaire Date Thrive assessed: 11/11/23 I am a: Patient What is your living situation today?: I have a steady place to live Within the past 12 months, did the food you bought not last and you didn't have the money to get more?: Never true Within the past 12 months, did you worry whether your food would run out before you got money to buy more?: Never true Do you have trouble paying for medicines?: No Do you have trouble getting transportation to medical appointments?: No Do you have trouble paying your heating and electricity bill?: No Do you have trouble taking care of your child, family member or friend?: No Do you have trouble with day-to-day activities such as bathing, preparing meals, shopping, managing finances, etc.?: No Are you currently unemployed and looking for a job?: No Are you interested in more education?: No Please select the resources that you would like help with: Housing/Fpc THRIVE Score: 0 AUDIT C Alcohol Use Questionnaire (AUDIT-C) 1. How often do you have a drink containing alcohol?: 2-4 times a month 2. How many drinks containing alcohol do you have on a typical day when you are drinking?: 1 or 2 3. How often do you have six or more drinks on one occasion?: Less than monthly Total Score: 3 STANISLAV-7 AMB Questionnaire STANISLAV-7 Date STANISLAV - 7 assessed: 11/11/23 Feeling nervous, anxious, or on edge: 0 = Not at all Not being able to stop or control worryin = Not at all Worrying too much about different things: 0 = Not at all Trouble relaxin = Not at all Being so restless that it is hard to sit still: 0 = Not at all Becoming easily annoyed or irritable: 0 = Not at all Feeling afraid as if something awful might happen: 0 = Not at all Total STANISLAV-7 score (0-4 normal; 5-9 mild; 10-14 moderate; 15-21 severe): 0 Source: Developed by Drs. Michael Prakash, Michelle Motley, Jose Tabor and colleagues, with an educational ariel from [employer]. STANISLAV-7 Assessment Billing STANISLAV-7 Assessment Tool: STANISLAV-7 Assessment 22562 Review of Systems Const Denies fatigue, Denies fever(s), Denies lethargy and Denies weakness Eyes Denies blurry vision and Denies change in vision ENT Reports Normal hearing present, Denies nasal congestion, Denies nasal discharge and Denies sore throat Card Denies chest pain, Reports lightheadedness (Occasional), Denies palpitations and Denies dyspnea Resp Denies chest congestion, Denies cough, Denies dyspnea and Denies wheezing GI Denies abdominal pain, Denies melena, Denies hematochezia, Denies heartburn and Reports diarrhea Denies dysuria, Denies urinary frequency and Denies urinary urgency Musc Reports as per HPI Skin/Breast Denies lesions and Denies rash Neuro Reports Normal hearing present, Denies Sensory deficit (Neuro) and Denies weakness Psych Reports no additional complaints Endo Denies fatigue, Denies polydipsia, Denies polyuria and Denies palpitations Jose/Lymph Denies easy bruising Aller/Immun Denies seasonal rhinorrhea and Denies wheezing Physical exam (Primary Care) Vital Signs: Last Vital Signs Pulse 83 11/11/23 10:36 BP 120/90 H 11/11/23 10:36 Pulse Ox 96 11/11/23 10:36 Oxygen Delivery Method Room Air 11/11/23 10:36 BMI result Body Mass Index 32.1 Tobacco/Smoking Status: Tobacco use Status Tobacco use date assessed 11/11/23 11/11/23 10:41 Patient Tobacco Use Status Never used Tobacco 11/11/23 10:41 e-Cigarette/Vaping Use Never Used 11/11/23 10:41 PHQ-9: PHQ-9 Score PHQ-9: Total score 0 11/11/23 10:41 Depression Screening Interpretation: Negative Thrive Assessment: Date of Thrive Assessment Date Thrive assessed 11/11/23 11/11/23 10:41 Const General: comfortable and no acute distress Orientation/consciousness: patient oriented x3 Eyes General: appearance normal, both eyes and all related structures Neck Neck: Yes full ROM, Yes no lymphadenopathy and Yes supple Resp Auscultation: clear to auscultation bilaterally Cardio Other: S1-S2 present regular rate and rhythm GI Other: Normal bowel sounds, soft, nontender, no mass palpated Back/Spine/Pelvis Back: No back tenderness Skin General skin exam: no rashes or lesions noted Neuro General: patient oriented x3 Cranial nerves: Yes Normal hearing present Sensory Exam: No Sensory deficit (Neuro) Extrem Other: No joint swelling, redness, increased warmth on both big toes, full range of motion noted General: Yes full ROM and Yes no pedal edema Psych Appearance: grossly normal and well kempt Mental Status: mental status grossly normal Speech and movement: Normal speech and movement present Affect: normal affect Attitude: cooperative Thought process: Normal thought process present Assessment and Plan Assessment & Plan (1) Toe joint pain: Code(s): M25.579 - Pain in unspecified ankle and joints of unspecified foot Qualifiers: Laterality: unspecified laterality Qualified Code(s): M25.579 - Pain in unspecified ankle and joints of unspecified foot Plan: Pain in both great toes on movement. Could be related to his Crohn's disease, will try on sulfasalazine 500 mg per tablet to take 1 twice a day with meals. Discontinue celecoxib, do not take ibuprofen, Aleve naproxen when taking this medication. Call in 2 weeks if no improvement (2) Crohn's disease: Comment: ff'd by Dr pettit/Dustin, currently asymptomatic except for some mucous discharge mixing occasionally with bowel movement Code(s): K50.90 - Crohn's disease, unspecified, without complications Qualifiers: Gastrointestinal tract location: small and large intestine Digestive disease complication type: with intestinal obstruction Qualified Code(s): K50.812 - Crohn's disease of both small and large intestine with intestinal obstruction Plan: Currently being followed by Dr. Pettit/dustin (3) Vitamin D deficiency: Code(s): E55.9 - Vitamin D deficiency, unspecified Plan: Advised to start taking [id number] vitamin D3 at 2000 units once a day Orders: Orders Complete Blood Count Auto Diff 12/27/23 E53.8 - Deficiency of other specified B group vitamins, E55.9 - Vitamin D deficiency, unspecified, K50.812 - Crohn's disease of both small and large intestine with intestinal obstruction Comprehensive [place]. Panel Fast 12/27/23 E53.8 - Deficiency of other specified B group vitamins, E55.9 - Vitamin D deficiency, unspecified, K50.812 - Crohn's disease of both small and large intestine with intestinal obstruction Vitamin D 25-OH Total 12/27/23 E53.8 - Deficiency of other specified B group vitamins, E55.9 - Vitamin D deficiency, unspecified, K50.812 - Crohn's disease of both small and large intestine with intestinal obstruction Vitamin B12 and Folate 12/27/23 E53.8 - Deficiency of other specified B group vitamins, E55.9 - Vitamin D deficiency, unspecified, K50.812 - Crohn's disease of both small and large intestine with intestinal obstruction Medications: New sulfasalazine give with food (meal/snack) 0.5 grams PO BID 60 tabs 0RF Coding Level of Care Code Est Pt Level 4 (64755) Complex EM visit Add On G2211 Diagnoses Arthralgia of toe, unspecified laterality M25.579 Laterality: unspecified laterality Crohn's disease of both small and large intestine with intestinal obstruction K50.812 Gastrointestinal tract location: small and large intestine Digestive disease complication type: with intestinal obstruction Vitamin D deficiency E55.9 Additional Codes STANISLAV-7 Assessment Billing - STANISLAV-7 Assessment Tool: STANISLAV-7 Assessment [id number] ([id number])
== END 2023-11-11 12:46 | disposition home or self-care (01) ==
PROVIDERS: PCP Internal Medicine; Visit Provider Internal Medicine
DX: M25.571 Pain in right ankle and joints of right foot (principal); K50.812 Crohn's disease of both small and large intestine with intestinal obstruction; E55.9 Vitamin D deficiency, unspecified; M25.572 Pain in left ankle and joints of left foot
CPT/HCPCS: 99214; G2211

== ENCOUNTER 2024-05-16 08:50 | Outpatient (REF) | payer OTHER, SELFPAY ==
[2024-05-16 13:10] LABS: Alanine Aminotransferase 36 U/L (0-40); Anion Gap 12 (12-20); Aspartate Amino Transferase 27 U/L (5-37); Blood Urea Nitrogen 9 mg/dL (9-16); Calcium 9.3 mg/dL (8.4-10.2); Carbon Dioxide 23 mmol/L (22-29); Chloride 107 mmol/L (96-108); Cholesterol 176 mg/dL (<200); Estimated Glomerular Filt Rate > 60; Glucose Fasting 91 mg/dL (60-99); HDL Cholesterol 50 mg/dL (>40); LDL Cholesterol Calculated 104 mg/dL (<100); Magnesium 1.9 mg/dL (1.6-2.6); Potassium 3.7 mmol/L (3.3-5.1); Sodium 138 mmol/L (135-145); Triglycerides 114 mg/dL (<150)
[2024-05-16 13:28] LABS: Vitamin D 25-OH Total 37.8 ng/mL (>30)
[2024-05-16 13:36] LABS: Folate 11.4 ng/mL (> or = 4.0); Vitamin B12 340 pg/mL (200-900)
== END 2024-05-16 08:51 | disposition home or self-care (01) ==
LOC: HO.HMGCLDS 08:50
PROVIDERS: PCP Internal Medicine; Visit Provider Internal Medicine
DX: Z00.01 Encounter for general adult medical examination with abnormal findings (principal); K50.812 Crohn's disease of both small and large intestine with intestinal obstruction; E55.9 Vitamin D deficiency, unspecified; I10 Essential (primary) hypertension; E66.811 Obesity, class 1; Z86.39 Personal history of other endocrine, nutritional and metabolic disease; L98.9 Disorder of the skin and subcutaneous tissue, unspecified; Z71.89 Other specified counseling
CPT/HCPCS: 36415; 80048; 80061; 82306; 82607; 82746; 83735; 84450; 84460; 96127

== ENCOUNTER 2024-05-16 08:50 | Outpatient (AMB) | payer OTHER, SELFPAY ==
--- NOTE | 2024-05-16 08:56 | MHC.PC.OV ---
Vital Signs 05/16/24 09:03 Height 5 ft 11 in Weight 236 lb BMI 32.9 BP 122/90 H Blood Pressure Location Lt brachial Position Sitting Pulse 79 Pulse Source Pulse Oximeter Pulse Oximetry (%) 98 Oxygen Delivery Method Room Air Intake Visit Reasons: Annual PE Intake Note: Pt is here today for his PE: last colonoscopy 11/26/17 Allergies No Known Allergies Allergy (Verified 05/16/24 09:15) Medication List - Last Reconciled 05/16/24 by Germaine Stark MD cyanocobalamin (vitamin B-12) 1,000 mcg IM .[id number] 3 months sulfasalazine 0.5 grams PO BID syringe with needle, safety (BD SafetyGlide Syringe) As directed to inject B-12 monthly Tobacco use date assessed: 05/16/24 Dental Screening Dental Screen Date: 05/16/24 Did you have a dental visit in the last 12 months?: Yes Did you have a dental problem in the last 6 months where you did not have access to dental care?: No Was dental information given to patient?: Patient has dentist HPI Annual PE HPI Details - The patient is a 58-year-old male presenting today for physical exam - he has Crohn's disease, with passage of soft stools occasionally watery in consistency, persists since early adulthood, no interventions to date have significantly altered stool consistency. denies any blood in stool - he has Vitamin B12 deficiency managed with monthly injections to counteract malabsorption issues possibly linked to Crohn's Disease. -last colonoscopy was done by Dr. Beasley 2017, not due again until 2027 - Pre-existing sciatica noted with sporadic episodes. - Myopia corrected with contact lenses for distance vision and occasional reading glasses for close tasks. - Previous surgical history includes an appendectomy during a colon surgery for Crohn's Disease in his 20s. - Arthritis-associated foot pain is managed intermittently with sulfasalazine. - Seasonally presenting eczema occurring mainly in bilateral lower extremities, typically self-managed with topical treatments. - Reports recent notable weight gain, with exploration of dietary modifications without consistent results. - Nutritional habits include skipping dinners occasionally, with breakfast and lunch being regular but varies day-to-day. - Reports consumption of two sodas daily and undecisive compliance with structured weight management strategies. - Physical activity seems limited beyond routine tasks and driving for son's activities. 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 Brother No problems noted. Son No problems noted. Social History Housing: House Alcohol intake: current Alcohol intake frequency: a few times a week Patient Tobacco Use Status: Never used Tobacco e-Cigarette/Vaping Use: Never Used service: No Current occupational status: employed Cognitive needs: No Hearing needs: No Vision needs: Yes Questionnaire PHQ-9 Over the last 2 weeks, how often have you been bothered by any of the following problems? 1. Little interest or pleasure in doing things: not at all 2. Feeling down, depressed, or hopeless: not at all 3. Trouble falling or staying asleep, or sleeping too much: more than half the days 4. Feeling tired or having little energy: several days 5. Poor appetite or overeating: not at all 6. Feeling bad about yourself - or that you are a failure or have let yourself or your family down: not at all 7. Trouble concentrating on things, such as reading the newspaper or watching television: not at all 8. Moving or speaking so slowly that other people could have noticed. Or the opposite - being so fidgety or restless that you have been moving around a lot more than usual: not at all 9. Thoughts that you would be better off or of hurting yourself in some way: not at all Total score: 3 Depression Screening Interpretation: Negative Depression Screening Done: Yes Source: Developed by Drs. Michael Prakash, Michelle Motley, Jose Tabor and colleagues, with an educational ariel from [email or web address]. Thrive Questionnaire Date Thrive assessed: 05/13/24 I am a: Patient What is your living situation today?: I have a steady place to live Within the past 12 months, did the food you bought not last and you didn't have the money to get more?: Never true Within the past 12 months, did you worry whether your food would run out before you got money to buy more?: Never true Do you have trouble paying for medicines?: No Do you have trouble getting transportation to medical appointments?: No Do you have trouble paying your heating and electricity bill?: No Do you have trouble taking care of your child, family member or friend?: No Do you have trouble with day-to-day activities such as bathing, preparing meals, shopping, managing finances, etc.?: No Are you currently unemployed and looking for a job?: No Are you interested in more education?: No Please select the resources that you would like help with: None Currently or been in a relationship where the following occur: No concerns reported THRIVE Score: 0 AUDIT C Alcohol Use Questionnaire (AUDIT-C) 1. How often do you have a drink containing alcohol?: 2-4 times a month 2. How many drinks containing alcohol do you have on a typical day when you are drinking?: 1 or 2 3. How often do you have six or more drinks on one occasion?: Never Total Score: 2 STANISLAV-7 AMB Questionnaire STANISLAV-7 Date STANISLAV - 7 assessed: 05/16/24 Feeling nervous, anxious, or on edge: 0 = Not at all Not being able to stop or control worryin = Not at all Worrying too much about different things: 0 = Not at all Trouble relaxin = Not at all Being so restless that it is hard to sit still: 0 = Not at all Becoming easily annoyed or irritable: 0 = Not at all Feeling afraid as if something awful might happen: 0 = Not at all Total STANISLAV-7 score (0-4 normal; 5-9 mild; 10-14 moderate; 15-21 severe): 0 Source: Developed by Drs. Michael Prakash, Michelle Motley, Jose Tabor and colleagues, with an educational ariel from [email or web address]. STANISLAV-7 Assessment Billing STANISLAV-7 Assessment Tool: STANISLAV-7 Assessment 06696 Review of Systems Const Denies fatigue, Denies fever(s), Denies lethargy and Denies weakness Eyes Details: myopia , dsees [facility] Denies change in vision ENT Reports Normal hearing present Card Denies chest pain, Denies palpitations and Denies dyspnea Resp Denies chest congestion, Denies cough, Denies dyspnea and Denies wheezing GI Denies abdominal pain, Denies melena, Denies hematochezia, Denies heartburn and Reports diarrhea Denies dysuria, Denies urinary frequency and Denies urinary urgency Musc Reports as per HPI Skin/Breast Denies lesions and Denies rash Neuro Reports Normal hearing present, Denies Sensory deficit (Neuro) and Denies weakness Psych Reports no additional complaints Endo Denies fatigue, Denies polydipsia, Denies polyuria and Denies palpitations Jose/Lymph Denies easy bruising Aller/Immun Denies seasonal rhinorrhea and Denies wheezing Physical exam (Primary Care) Vital Signs: Last Vital Signs Pulse 79 05/16/24 09:03 BP 122/90 H 05/16/24 09:03 Pulse Ox 98 05/16/24 09:03 Oxygen Delivery Method Room Air 05/16/24 09:03 BMI result Body Mass Index 32.9 Tobacco/Smoking Status: Tobacco use Status Tobacco use date assessed 05/16/24 05/16/24 08:59 Patient Tobacco Use Status Never used Tobacco 05/16/24 08:56 e-Cigarette/Vaping Use Never Used 05/16/24 08:56 PHQ-9: PHQ-9 Score PHQ-9: Total score 3 05/16/24 09:45 Depression Screening Interpretation: Negative Thrive Assessment: Date of Thrive Assessment Date Thrive assessed 05/13/24 05/16/24 08:56 Currently or been in a relationship where the following occur: No concerns reported Advance Care Planning discussion: Completed/Scanned Date of discussion: 05/16/24 Who was present: pt Forms completed: Health Care Proxy Time spent: 16-45 minutes Actual minutes spent: 2 Const General: comfortable and no acute distress Nutritional Appearance: obese Orientation/consciousness: patient oriented x3 Limitations: no limitations HENMT Head: Yes normocephalic Ears: external ears normal, TM's normal bilaterally and EAC's normal General nose exam: Normal external nose present Face and sinus: Yes face symmetric Mouth: Normal oral and palatal mucosa present, oropharynx normal and moist mucous membranes Eyes General: appearance normal, both eyes and all related structures Pupils: Equal, round and reactive pupils present EOM: EOMs intact bilaterally Neck Other: nodular subcutaneous mass 1 in diameter , mobile at left posterior neck , just below hairline , nontender Neck: Yes full ROM, Yes no lymphadenopathy and Yes supple Chest Chest palpation & inspection: normal inspection of the chest and normal palpation of entire chest wall Resp Auscultation: clear to auscultation bilaterally Cardio Other: S1-S2 present regular rate and rhythm Palpation: normal PMI Rate: regular rate Rhythm: regular rhythm Heart sounds: S1 normal heart sound present and S2 normal heart sound present Bruits: no abdominal aortic bruits and no carotid bruits Peripheral pulses: Peripheral pulses 2+ throughout GI Other: Normal bowel sounds, soft, nontender, no mass palpated Palpation (GI): No Abdominal aortic bruit present General: Yes no CVA tenderness Back/Spine/Pelvis Back: no CVA tenderness and No back tenderness Skin General skin exam: no rashes or lesions noted Neuro General: patient oriented x3 Cranial nerves: Yes Equal, round and reactive pupils present and Yes Normal hearing present Sensory Exam: No Sensory deficit (Neuro) Extrem General: Yes full ROM and Yes no pedal edema Psych Appearance: grossly normal and well kempt Mental Status: mental status grossly normal Speech and movement: Normal speech and movement present Affect: normal affect Attitude: cooperative Thought process: Normal thought process present Coding Level of Care Code Est Pt Prev Care 40-64y(45965) Diagnoses Annual visit for general adult medical examination with abnormal findings Z00.01 Crohn's disease of both small and large intestine with intestinal obstruction K50.812 Digestive disease complication type: with intestinal obstruction Gastrointestinal tract location: small and large intestine Vitamin D deficiency E55.9 Encounter for counseling regarding advance directives Z71.89 Hx of non anemic vitamin B12 deficiency Z86.39 Essential hypertension I10 Obesity (BMI 30.0-34.9) E66.811 Skin lesion of neck L98.9 Additional Codes STANISLAV-7 Assessment Billing - STANISLAV-7 Assessment Tool: STANISLAV-7 Assessment 41110 ([id number]) Vital Signs *Quality* - Advance Care Planning discussion: Completed/Scanned ([id number]) Vital Signs *Quality* - Time spent: 16-45 minutes ([id number]) Assessment & Plan Assessment & Plan (1) Annual visit for general adult medical examination with abnormal findings: Code(s): Z00.01 - Encounter for general adult medical examination with abnormal findings (2) Crohn's disease: Comment: ff'd by Dr pettit/Dustin, currently asymptomatic except for some mucous discharge mixing occasionally with bowel movement Code(s): K50.90 - Crohn's disease, unspecified, without complications Category: Medical Qualifiers: Digestive disease complication type: with intestinal obstruction Gastrointestinal tract location: small and large intestine Qualified Code(s): K50.812 - Crohn's disease of both small and large intestine with intestinal obstruction (3) Vitamin D deficiency: Code(s): E55.9 - Vitamin D deficiency, unspecified Category: Medical (4) Encounter for counseling regarding advance directives: Code(s): Z71.89 - Other specified counseling Plan: Initiated the conversation about Advanced Directives. Advanced Directives help patients prepare for current and future decisions about their medical treatment and place of care. Discussed with patient that it is a process where a patients current condition and prognosis are reviewed, their wishes for information regarding their illness are elicited, and likely medical dilemmas are presented and options discussed. Healthcare proxy form completed today. The form can be amended as needed, reviewed yearly and make changes as needed (5) Hx of non anemic vitamin B12 deficiency: Code(s): Z86.39 - Personal history of other endocrine, nutritional and metabolic disease Category: Medical (6) Essential hypertension: Comment: Controlled with diet and exercise Code(s): I10 - Essential (primary) hypertension Category: Medical (7) Obesity (BMI 30.0-34.9): Code(s): E66.811 - Obesity, class 1 Category: Medical (8) Skin lesion of neck: Code(s): L98.9 - Disorder of the skin and subcutaneous tissue, unspecified Category: Medical Plan: Subcutaneous mass palpated on left posterior neck just below hairline, which has been present now for the last several years, not growing in size, nontender to palpation. Will continue to observe. Advise patient to let us know if it starts getting bigger or starts causing any discomfort Plan I will continue with the management plan addressing the patient's chronic diarrhea by monitoring electrolytes and kidney function, given the implications associated with Crohn's Disease. Monthly vitamin injections will persistently address the deficiency. The sciatic pain will remain under review, intervening only if it restricts daily function. Regular assessments with prescription contact lenses at [facility] are advised. Topical hydrocortisone and emollients will be utilized for eczema management. For weight management, we'll initiate with phentermine and consider injectable alternatives dependent on insurance authorization. The patient is informed of the importance of preventative care in general, deferring vaccinations like flu and COVID-19 is observed per patient preference. Routine screenings for cholesterol and blood pressure will continue to be adhered to, integrating all preventative measures Patient was informed and verbally consented to the use of an ambient scribe for clinic note documentation during this visit. Orders: Orders Magnesium Today E55.9 - Vitamin D deficiency, unspecified, K50.812 - Crohn's disease of both small and large intestine with intestinal obstruction, Z00.01 - Encounter for general adult medical examination with abnormal findings, Z71.89 - Other specified counseling, Z86.39 - Personal history of other endocrine, nutritional and metabolic disease Basic Metabolic Panel Fasting Today E55.9 - Vitamin D deficiency, unspecified, K50.812 - Crohn's disease of both small and large intestine with intestinal obstruction, Z00.01 - Encounter for general adult medical examination with abnormal findings, Z71.89 - Other specified counseling, Z86.39 - Personal history of other endocrine, nutritional and metabolic disease Lipid Panel Today E55.9 - Vitamin D deficiency, unspecified, K50.812 - Crohn's disease of both small and large intestine with intestinal obstruction, Z00.01 - Encounter for general adult medical examination with abnormal findings, Z71.89 - Other specified counseling, Z86.39 - Personal history of other endocrine, nutritional and metabolic disease Alanine Aminotransferase Today E55.9 - Vitamin D deficiency, unspecified, I10 - Essential (primary) hypertension, K50.812 - Crohn's disease of both small and large intestine with intestinal obstruction, Z86.39 - Personal history of other endocrine, nutritional and metabolic disease Vitamin B12 and Folate Today E55.9 - Vitamin D deficiency, unspecified, K50.812 - Crohn's disease of both small and large intestine with intestinal obstruction, Z00.01 - Encounter for general adult medical examination with abnormal findings, Z71.89 - Other specified counseling, Z86.39 - Personal history of other endocrine, nutritional and metabolic disease Vitamin D 25-OH Total Today E55.9 - Vitamin D deficiency, unspecified, K50.812 - Crohn's disease of both small and large intestine with intestinal obstruction, Z00.01 - Encounter for general adult medical examination with abnormal findings, Z71.89 - Other specified counseling, Z86.39 - Personal history of other endocrine, nutritional and metabolic disease Aspartate Amino Transferase Today E55.9 - Vitamin D deficiency, unspecified, I10 - Essential (primary) hypertension, K50.812 - Crohn's disease of both small and large intestine with intestinal obstruction, Z86.39 - Personal history of other endocrine, nutritional and metabolic disease Medications: New phentermine must administer 2 hours after breakfast 15 mg PO DAILY 30 caps 1RF
[2024-05-16 09:03] VITALS: BP 122/90; PULSE 79; O2SAT 98; BMI 32.9
== END 2024-05-16 09:46 | disposition home or self-care (01) ==
PROVIDERS: PCP Internal Medicine; Visit Provider Internal Medicine
DX: Z00.01 Encounter for general adult medical examination with abnormal findings (principal); K50.812 Crohn's disease of both small and large intestine with intestinal obstruction; E55.9 Vitamin D deficiency, unspecified; Z71.89 Other specified counseling; Z86.39 Personal history of other endocrine, nutritional and metabolic disease; I10 Essential (primary) hypertension; E66.811 Obesity, class 1; L98.9 Disorder of the skin and subcutaneous tissue, unspecified; Z00.00 Encounter for general adult medical examination without abnormal findings

== ENCOUNTER 2024-06-27 09:42 | Outpatient (AMB) | payer OTHER, SELFPAY ==
[2024-06-27 10:44] VITALS: BP 110/86; PULSE 68; RESP 16; TEMP 36.7; O2SAT 99; BMI 31.8
--- NOTE | 2024-06-27 10:44 | MHC.PC.OV ---
Vital Signs 06/27/24 10:44 Height 5 ft 11 in Weight 228 lb BMI 31.8 BP 110/86 Blood Pressure Location Rt brachial Position Sitting Respiration 16 Pulse 68 Pulse Source Pulse Oximeter Temp 98.0 F Temp Source Oral Pulse Oximetry (%) 99 Oxygen Delivery Method Room Air Intake Visit Reasons: 6week follow up, weight, per AE Intake Note: Pt is here today for his 6weeks f/u wgt Allergies No Known Allergies Allergy (Verified 07/04/24 02:00) Medication List - Last Reconciled 07/04/24 by Germaine Stark MD cyanocobalamin (vitamin B-12) 1,000 mcg IM .[id number] 3 months sulfasalazine 0.5 grams PO BID syringe with needle, safety (BD SafetyGlide Syringe) As directed to inject B-12 monthly Wegovy (semaglutide (weight loss)) 0.25 mg (0.5 mL) subcut QWEEK NS Tobacco use date assessed: 06/27/24 Dental Screening Dental Screen Date: 06/27/24 Did you have a dental visit in the last 12 months?: Yes Did you have a dental problem in the last 6 months where you did not have access to dental care?: No Was dental information given to patient?: Patient has dentist HPI 6week follow up, weight, per AE HPI Details 58-year-old male with history of obesity, hypertension and history Crohn's disease, here today for follow-up his weight after starting Wegovy. Currently on 0.25 mg subcutaneously given once a week. Has been tolerating medication well, denies any adverse effects from taking the medication except for some dyspepsia during the 1st day of injection which resolved spontaneously. 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 Brother No problems noted. Son No problems noted. Social History Housing: House Alcohol intake: current Alcohol intake frequency: a few times a week Patient Tobacco Use Status: Never used Tobacco e-Cigarette/Vaping Use: Never Used service: No Current occupational status: employed Cognitive needs: No Hearing needs: No Vision needs: Yes Questionnaire Thrive Questionnaire Date Thrive assessed: 05/13/24 I am a: Patient What is your living situation today?: I have a steady place to live Within the past 12 months, did the food you bought not last and you didn't have the money to get more?: Never true Within the past 12 months, did you worry whether your food would run out before you got money to buy more?: Never true Do you have trouble paying for medicines?: No Do you have trouble getting transportation to medical appointments?: No Do you have trouble paying your heating and electricity bill?: No Do you have trouble taking care of your child, family member or friend?: No Do you have trouble with day-to-day activities such as bathing, preparing meals, shopping, managing finances, etc.?: No Are you currently unemployed and looking for a job?: No Are you interested in more education?: No Please select the resources that you would like help with: None Currently or been in a relationship where the following occur: No concerns reported THRIVE Score: 0 STANISLAV-7 AMB Questionnaire STANISLAV-7 Date STANISLAV - 7 assessed: 05/16/24 Source: Developed by Drs. Michael Prakash, Michelle Motley, Jose Tabor and colleagues, with an educational ariel from [employer]. Review of Systems Const Denies fatigue, Denies fever(s), Denies lethargy and Denies weakness Eyes Denies change in vision ENT Reports Normal hearing present Card Denies chest pain, Denies palpitations and Denies dyspnea Resp Denies chest congestion, Denies cough, Denies dyspnea and Denies wheezing GI Denies abdominal pain, Denies melena, Denies hematochezia and Denies heartburn Denies dysuria, Denies urinary frequency and Denies urinary urgency Musc Reports as per HPI Skin/Breast Denies lesions and Denies rash Neuro Reports Normal hearing present, Denies Sensory deficit (Neuro) and Denies weakness Psych Reports no additional complaints Endo Denies fatigue, Denies polydipsia, Denies polyuria and Denies palpitations Jose/Lymph Denies easy bruising Aller/Immun Denies seasonal rhinorrhea and Denies wheezing Physical exam (Primary Care) Vital Signs: Last Vital Signs Temp 98.0 F 06/27/24 10:44 Pulse 68 06/27/24 10:44 Resp 16 06/27/24 10:44 BP 110/86 06/27/24 10:44 Pulse Ox 99 06/27/24 10:44 Oxygen Delivery Method Room Air 06/27/24 10:44 BMI result Body Mass Index 31.8 Tobacco/Smoking Status: Tobacco use Status Tobacco use date assessed 06/27/24 06/27/24 10:46 Patient Tobacco Use Status Never used Tobacco 06/27/24 10:46 e-Cigarette/Vaping Use Never Used 06/27/24 10:46 Thrive Assessment: Date of Thrive Assessment Date Thrive assessed 05/13/24 06/27/24 10:46 Currently or been in a relationship where the following occur: No concerns reported Const General: comfortable and no acute distress Nutritional Appearance: obese Orientation/consciousness: patient oriented x3 HENMT Head: Yes normocephalic General nose exam: Normal external nose present Face and sinus: Yes face symmetric Mouth: oropharynx normal and moist mucous membranes Eyes General: appearance normal, both eyes and all related structures Neck Neck: Yes full ROM, Yes no lymphadenopathy and Yes supple Chest Chest palpation & inspection: normal inspection of the chest and normal palpation of entire chest wall Resp Auscultation: clear to auscultation bilaterally Cardio Other: S1-S2 present regular rate and rhythm Palpation: normal PMI Rate: regular rate Rhythm: regular rhythm Heart sounds: S1 normal heart sound present and S2 normal heart sound present Bruits: no abdominal aortic bruits and no carotid bruits Peripheral pulses: Peripheral pulses 2+ throughout GI Other: Normal bowel sounds, soft, nontender, no mass palpated Palpation (GI): No Abdominal aortic bruit present General: Yes no CVA tenderness Back/Spine/Pelvis Back: no CVA tenderness and No back tenderness Neuro General: patient oriented x3 Cranial nerves: Yes Normal hearing present Sensory Exam: No Sensory deficit (Neuro) Extrem General: Yes full ROM and Yes no pedal edema Results Reviewed Results Reviewed: Name: Enrique Winn Age/Sex: 58/M : 1965 Unit#: [id number] Attend Dr: Germaine Stark MD Re05/16/24 Status: DEP REF Location: [facility] Disch: SPEC : [id number] MARTHA: 05/16/24 STATUS: COMP REQ : [id number] RECD: 05/16/[address]: Germaine Stark MD COMP: 05/16/24 ENTERED: 05/16/[address]: ORDERED: Met Prof Fast, MG, AST, ALT, Lipid Panel, Vitamin D 25-OH Test Result Flag Reference Sodium 138 135-145 mmol/L Potassium 3.7 3.3-5.1 mmol/L CL 107 96-108 mmol/L CO2 23 22-29 mmol/L Gap 12 -20 BUN 9 9-16 mg/dL Creat 1.02 0.5-1.4 mg/dL eGFR > 60 Chronic Kidney Disease: Estimated GFR < 60 mL/min/1.73m2 Severe Kidney Disease: Estimated GFR < 15 mL/min/1.73m2 FBS 91 60-99 mg/dL CA 9.3 8.4-10.2 mg/dL Magnesium 1.9 1.6-2.6 mg/dL AST (GOT) 27 5-37 U/L ALT (GPT) 36 0-40 U/L Triglyceride 114 <150 mg/dL Desirable Triglyceride: less than 150 mg/dL Borderline High Triglyceride 150-199 mg/dL High Triglyceride: 200-499 mg/dL Very High Triglyceride: greater than or equal to 5OO mg/dL Cholesterol 176 <200 mg/dL Desirable Cholesterol: less than 200 mg/dL Borderline High Cholesterol: 200-239 mg/dL High Cholesterol: greater than 239 mg/dL LDL Calculated 104 H <100 mg/dL Desirable LDL: less than 100 mg/dL Near Optimal/Above Optimal LDL: 110-129 mg/dL Borderline High LDL: 130-159 mg/dL High LDL: 160-189 mg/dL Very High LDL: greater than or equal to 190 mg/dL HDL 50 >40 mg/dL Desirable HDL: greater than 40 mg/dL Note: This HDL assay may give artificially low results in patients with liver disease. Vit D 25-OH Tot 37.8 >30 ng/mL Health Based Reference Values* < 20 ng/mL Deficient 20-30 ng/mL Insufficient > 30 ng/mL Sufficient Coding Level of Care Code Est Pt Level 4 (15910) Diagnoses Essential hypertension I10 Obesity (BMI 30.0-34.9) E66.811 Assessment & Plan Assessment & Plan (1) Essential hypertension: Comment: Controlled with diet and exercise Code(s): I10 - Essential (primary) hypertension Category: Medical Plan: Blood pressure within normal limits (2) Obesity (BMI 30.0-34.9): Code(s): E66.811 - Obesity, class 1 Category: Medical Plan: Will continue on current dose of Wegovy at 0.25 mg injected subcutaneously once a week. Continue with adherence to healthy eating habits and regular exercise. See him back for follow-up in August after fasting labs done Orders: Orders TSH reflex Free T4 09/10/24 E66.811 - Obesity, class 1, I10 - Essential (primary) hypertension Basic Metabolic Panel Fasting 09/10/24 E66.811 - Obesity, class 1, I10 - Essential (primary) hypertension Aspartate Amino Transferase 09/10/24 E66.811 - Obesity, class 1, I10 - Essential (primary) hypertension Alanine Aminotransferase 09/10/24 E66.811 - Obesity, class 1, I10 - Essential (primary) hypertension Medications: Refilled Wegovy (semaglutide (weight loss)) administer weeks 1 through 4 of therapy 0.25 mg (0.5 mL) subcut QWEEK 2 mL 4RF NS E66.811 - Obesity, class 1, I10 - Essential (primary) hypertension
== END 2024-06-27 11:17 | disposition home or self-care (01) ==
PROVIDERS: PCP Internal Medicine; Visit Provider Internal Medicine
DX: I10 Essential (primary) hypertension (principal); E66.811 Obesity, class 1; Z68.31 Body mass index [BMI] 31.0-31.9, adult

== ENCOUNTER → 2024-08-18 09:53 | Outpatient (BNVA) | payer OTHER, SELFPAY | PROVIDERS: PCP Internal Medicine; Visit Provider Internal Medicine | DX: Z13.89 Encounter for screening for other disorder (principal) ==

== ENCOUNTER 2024-09-13 09:26 | Outpatient (REF) | payer OTHER, SELFPAY ==
[2024-09-13 14:00] LABS: Alanine Aminotransferase 25 U/L (0-40); Anion Gap 9 (12-20); Aspartate Amino Transferase 25 U/L (5-37); Blood Urea Nitrogen 12 mg/dL (9-16); Calcium 9.4 mg/dL (8.4-10.2); Carbon Dioxide 27 mmol/L (22-29); Chloride 105 mmol/L (96-108); Estimated Glomerular Filt Rate > 60; Glucose Fasting 85 mg/dL (60-99); Potassium 4.4 mmol/L (3.3-5.1); Sodium 137 mmol/L (135-145)
== END 2024-09-13 09:27 | disposition home or self-care (01) ==
LOC: HO.HMGCLDS 09:26
PROVIDERS: PCP Internal Medicine; Visit Provider Internal Medicine
DX: I10 Essential (primary) hypertension (principal); E66.811 Obesity, class 1
CPT/HCPCS: 36415; 80048; 84443; 84450; 84460

== ENCOUNTER 2024-09-14 11:42 | Outpatient (AMB) | payer OTHER, SELFPAY ==
--- NOTE | 2024-09-14 12:11 | A.OFFPC_ITS ---
Vital Signs 09/14/24 12:25 Height 5 ft 11 in Weight 217 lb BMI 30.3 BP 112/80 Blood Pressure Location Rt brachial Position Sitting Respiration 16 Pulse 71 Pulse Source Pulse Oximeter Temp 98.0 F Temp Source Oral Pulse Oximetry (%) 99 Oxygen Delivery Method Room Air Intake Visit Reasons: 2m follow up Intake Note: Pt is here today for his 2m. f/u Allergies No Known Allergies Allergy (Verified 09/14/24 12:35) Medication List - Last Reconciled 09/14/24 by Germaine Stark MD cyanocobalamin (vitamin B-12) 1,000 mcg IM .[id number] 3 months syringe with needle, safety (BD SafetyGlide Syringe) As directed to inject B-12 monthly Wegovy (semaglutide (weight loss)) 0.5 mg (0.5 mL) subcut QWEEK 30 days NS Tobacco use date assessed: 09/14/24 Dental Screening Dental Screen Date: 09/14/24 Did you have a dental visit in the last 12 months?: Yes Did you have a dental problem in the last 6 months where you did not have access to dental care?: No Was dental information given to patient?: Patient has dentist HPI 2m follow up HPI Details 58-year-old male with history of obesity , hypertension and history Crohn's disease, here today for follow-up his weight after starting Wegovy. Now on 0.5 mg once a week, tolerating medication well denies any adverse effects from taking it, has plateaued on his weight loss. Still has occasional cravings but appetite is less. 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 Brother No problems noted. Son No problems noted. Social History Housing: House Alcohol intake: current Alcohol intake frequency: a few times a week Patient Tobacco Use Status: Never used Tobacco e-Cigarette/Vaping Use: Never Used service: No Current occupational status: employed Cognitive needs: No Hearing needs: No Vision needs: Yes Questionnaire Thrive Questionnaire Date Thrive assessed: 05/13/24 I am a: Patient What is your living situation today?: I have a steady place to live Within the past 12 months, did the food you bought not last and you didn't have the money to get more?: Never true Within the past 12 months, did you worry whether your food would run out before you got money to buy more?: Never true Do you have trouble paying for medicines?: No Do you have trouble getting transportation to medical appointments?: No Do you have trouble paying your heating and electricity bill?: No Do you have trouble taking care of your child, family member or friend?: No Do you have trouble with day-to-day activities such as bathing, preparing meals, shopping, managing finances, etc.?: No Are you currently unemployed and looking for a job?: No Are you interested in more education?: No Please select the resources that you would like help with: None Currently or been in a relationship where the following occur: No concerns reported THRIVE Score: 0 AUDIT C Alcohol Use Questionnaire (AUDIT-C) 1. How often do you have a drink containing alcohol?: 2-4 times a month 2. How many drinks containing alcohol do you have on a typical day when you are drinking?: 1 or 2 3. How often do you have six or more drinks on one occasion?: Never Total Score: 2 STANISLAV-7 AMB Questionnaire STANISLAV-7 Date STANISLAV - 7 assessed: 05/16/24 Source: Developed by Drs. Michael Prakash, Michelle Motley, Jose Tabor and colleagues, with an educational ariel from [employer]. Review of Systems Const Denies fatigue, Denies fever(s), Denies lethargy and Denies weakness Eyes Details: Sees [facility] Denies change in vision ENT Reports Normal hearing present Card Denies chest pain, Denies palpitations and Denies dyspnea Resp Denies chest congestion, Denies cough, Denies dyspnea and Denies wheezing GI Denies abdominal pain, Denies melena, Denies hematochezia and Denies heartburn Denies dysuria, Denies urinary frequency and Denies urinary urgency Musc Reports as per HPI Skin/Breast Denies lesions and Denies rash Neuro Reports Normal hearing present, Denies Sensory deficit (Neuro) and Denies weakness Psych Reports no additional complaints Endo Denies fatigue, Denies polydipsia, Denies polyuria and Denies palpitations Jose/Lymph Denies easy bruising Aller/Immun Denies seasonal rhinorrhea and Denies wheezing Physical exam (Primary Care) Vital Signs: Last Vital Signs Temp 98.0 F 09/14/24 12:25 Pulse 71 09/14/24 12:25 Resp 16 09/14/24 12:25 BP 112/80 09/14/24 12:25 Pulse Ox 99 09/14/24 12:25 Oxygen Delivery Method Room Air 09/14/24 12:25 BMI result Body Mass Index 30.3 Tobacco/Smoking Status: Tobacco use Status Tobacco use date assessed 09/14/24 09/14/24 12:18 Patient Tobacco Use Status Never used Tobacco 09/14/24 12:13 e-Cigarette/Vaping Use Never Used 09/14/24 12:13 Thrive Assessment: Date of Thrive Assessment Date Thrive assessed 05/13/24 09/14/24 12:13 Currently or been in a relationship where the following occur: No concerns reported Const General: comfortable and no acute distress Nutritional Appearance: obese Orientation/consciousness: patient oriented x3 HENMT Head: Yes normocephalic General nose exam: Normal external nose present Face and sinus: Yes face symmetric Mouth: oropharynx normal and moist mucous membranes Eyes General: appearance normal, both eyes and all related structures Neck Neck: Yes full ROM, Yes no lymphadenopathy and Yes supple Resp Auscultation: clear to auscultation bilaterally Cardio Other: S1-S2 present regular rate and rhythm Palpation: normal PMI Rate: regular rate Rhythm: regular rhythm Heart sounds: S1 normal heart sound present and S2 normal heart sound present Peripheral pulses: Peripheral pulses 2+ throughout GI Other: Normal bowel sounds, soft, nontender, no mass palpated General: Yes no CVA tenderness Back/Spine/Pelvis Back: no CVA tenderness and No back tenderness Neuro General: patient oriented x3 Cranial nerves: Yes Normal hearing present Sensory Exam: No Sensory deficit (Neuro) Extrem General: Yes full ROM and Yes no pedal edema Results Reviewed Results Reviewed: Name: Enrique Winn Age/Sex: 59/M [facility] 1965 [id number]#: [id number] Attend Dr: Germaine Stark MD Re09/13/24 Status: DEP REF Location: [facility] Disch: SPEC : [id number] MARTHA: 09/13/24 STATUS: COMP REQ : [id number] RECD: 09/13/[address]: Germaine Stark MD COMP: 09/13/24 ENTERED: 09/13/[address]: ORDERED: Met Prof Fast, AST, ALT, TSH Rflx Test Result Flag Reference Sodium 137 135-145 mmol/L Potassium 4.4 3.3-5.1 mmol/L CL 105 96-108 mmol/L CO2 27 22-29 mmol/L Gap 9 L 12-20 BUN 12 9-16 mg/dL Creat 0.92 0.5-1.4 mg/dL eGFR > 60 Chronic Kidney Disease: Estimated GFR < 60 mL/min/1.73m2 Severe Kidney Disease: Estimated GFR < 15 mL/min/1.73m2 FBS 85 60-99 mg/dL CA 9.4 8.4-10.2 mg/dL AST (GOT) 25 5-37 U/L ALT (GPT) 25 0-40 U/L TSH 1.70 0.32-4.0 uIU/mL Coding Level of Care Code Est Pt Level 4 (65209) Complex EM visit Add On G2211 Diagnoses Essential hypertension I10 Obesity (BMI 30.0-34.9) E66.811 Assessment & Plan Assessment & Plan (1) Essential hypertension: Comment: Controlled with diet and exercise Code(s): I10 - Essential (primary) hypertension Category: Medical Plan: Blood pressure at goal of less than 130/80. Reinforced importance of following a low sodium diet, getting regular exercise, and lowering stress levels. (2) Obesity (BMI 30.0-34.9): Code(s): E66.811 - Obesity, class 1 Category: Medical Plan: Has plateaued on his weight on Wegovy 0.5 mg injected once weekly. Will increase dose to 1 mg injected once a week continue with adherence to healthy eating habits and regular exercise Orders: Orders TSH reflex Free T4 04/22/25 E55.9 - Vitamin D deficiency, unspecified, E66.811 - Obesity, class 1, I10 - Essential (primary) hypertension, K50.812 - Crohn's disease of both small and large intestine with intestinal obstruction, Z86.39 - Personal history of other endocrine, nutritional and metabolic disease Vitamin D 25-OH Total 04/22/25 E55.9 - Vitamin D deficiency, unspecified, E66.811 - Obesity, class 1, I10 - Essential (primary) hypertension, K50.812 - Crohn's disease of both small and large intestine with intestinal obstruction, Z86.39 - Personal history of other endocrine, nutritional and metabolic disease Complete Blood Count Auto Diff 04/22/25 E55.9 - Vitamin D deficiency, unspecified, E66.811 - Obesity, class 1, I10 - Essential (primary) hypertension, K50.812 - Crohn's disease of both small and large intestine with intestinal obstruction, Z86.39 - Personal history of other endocrine, nutritional and metabolic disease Basic Metabolic Panel Fasting 04/22/25 E55.9 - Vitamin D deficiency, unspecified, E66.811 - Obesity, class 1, I10 - Essential (primary) hypertension, K50.812 - Crohn's disease of both small and large intestine with intestinal obstruction, Z86.39 - Personal history of other endocrine, nutritional and metabolic disease Aspartate Amino Transferase 04/22/25 E55.9 - Vitamin D deficiency, unspecified, E66.811 - Obesity, class 1, I10 - Essential (primary) hypertension, K50.812 - Crohn's disease of both small and large intestine with intestinal obstruction, Z86.39 - Personal history of other endocrine, nutritional and metabolic disease Alanine Aminotransferase 04/22/25 E55.9 - Vitamin D deficiency, unspecified, E66.811 - Obesity, class 1, I10 - Essential (primary) hypertension, K50.812 - Crohn's disease of both small and large intestine with intestinal obstruction, Z86.39 - Personal history of other endocrine, nutritional and metabolic disease Lipid Panel 04/22/25 E55.9 - Vitamin D deficiency, unspecified, E66.811 - Obesity, class 1, I10 - Essential (primary) hypertension, K50.812 - Crohn's disease of both small and large intestine with intestinal obstruction, Z86.39 - Personal history of other endocrine, nutritional and metabolic disease Vitamin B12 and Folate 04/22/25 E55.9 - Vitamin D deficiency, unspecified, E66.811 - Obesity, class 1, I10 - Essential (primary) hypertension, K50.812 - Crohn's disease of both small and large intestine with intestinal obstruction, Z86.39 - Personal history of other endocrine, nutritional and metabolic disease Medications: Changed From Wegovy (semaglutide (weight loss)) 0.5 mg (0.5 mL) subcut QWEEK 30 days 2 mL 3RF NS E66.811 - Obesity, class 1, I10 - Essential (primary) hypertension To semaglutide (weight loss) 1 mg (0.5 mL) subcut QWEEK 2 mL 3RF 30 days E66.811 - Obesity, class 1, I10 - Essential (primary) hypertension Refilled cyanocobalamin (vitamin B-12) Inject IM once a month 1,000 mcg IM .[id number] 10 mL 4RF 3 months E53.8 - Deficiency of other specified B group vitamins
[2024-09-14 12:25] VITALS: BP 112/80; PULSE 71; RESP 16; TEMP 36.7; O2SAT 99; BMI 30.3
== END 2024-09-14 16:33 | disposition home or self-care (01) ==
LOC: HO.HMCC 11:43
PROVIDERS: PCP Internal Medicine; Visit Provider Internal Medicine
DX: I10 Essential (primary) hypertension (principal); E66.811 Obesity, class 1; Z68.30 Body mass index [BMI] 30.0-30.9, adult

== ENCOUNTER → 2024-09-14 11:42 | Outpatient (BNVA) | payer OTHER, SELFPAY | PROVIDERS: PCP Internal Medicine; Visit Provider Internal Medicine ==

== ENCOUNTER 2024-11-23 12:31 | Outpatient (AMB) | payer OTHER, SELFPAY ==
[2024-11-23 12:33] VITALS: BP 122/72; PULSE 73; O2SAT 98
--- NOTE | 2024-11-23 12:33 | MHC.PC.OV ---
Vital Signs 11/23/24 12:33 Height 5 ft 11 in Weight 215 lb BMI 30.0 BP 122/72 Blood Pressure Location Lt brachial Position Sitting Pulse 73 Pulse Source Pulse Oximeter Pulse Oximetry (%) 98 Intake Visit Reasons: Lump on neck Allergies No Known Allergies Allergy (Verified 11/27/24 23:27) Medication List - Last Reconciled 11/27/24 by Germaine Stark MD cyanocobalamin (vitamin B-12) 1,000 mcg IM .[id number] 3 months semaglutide (weight loss) 1 mg (0.5 mL) subcut QWEEK 30 days syringe with needle, safety (BD SafetyGlide Syringe) As directed to inject B-12 monthly Tobacco use date assessed: 09/14/24 Dental Screening Dental Screen Date: 09/14/24 HPI Lump on neck HPI Details - The patient is a 59-year-old male presenting today complaining of an enlarging posterior neck mass , and help managing his weight - The posterior neck mass has been present for several years but has recently started enlarging and causing discomfort. The mass is approximately 1x1 inch in size and located on the left posterior neck. He reports a dull ache and occasional sharp pain associated with the mass. - The patient has been managing weight with Wegovy, starting at 236 pounds in April and currently weighing 215 pounds. He reports no side effects from Wegovy and has experienced improved cholesterol and blood sugar levels. 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 Brother No problems noted. Son No problems noted. Social History Housing: House Alcohol intake: current Alcohol intake frequency: a few times a week Patient Tobacco Use Status: Never used Tobacco e-Cigarette/Vaping Use: Never Used service: No Current occupational status: employed Cognitive needs: No Hearing needs: No Vision needs: Yes Questionnaire Thrive Questionnaire Date Thrive assessed: 11/23/24 I am a: Patient What is your living situation today?: I have a steady place to live Within the past 12 months, did the food you bought not last and you didn't have the money to get more?: Never true Within the past 12 months, did you worry whether your food would run out before you got money to buy more?: Never true Do you have trouble paying for medicines?: No Do you have trouble getting transportation to medical appointments?: No Do you have trouble paying your heating and electricity bill?: No Do you have trouble taking care of your child, family member or friend?: No Do you have trouble with day-to-day activities such as bathing, preparing meals, shopping, managing finances, etc.?: No Are you currently unemployed and looking for a job?: No Are you interested in more education?: No Please select the resources that you would like help with: None Currently or been in a relationship where the following occur: No concerns reported THRIVE Score: 0 STANISLAV-7 AMB Questionnaire STANISLAV-7 Date STANISLAV - 7 assessed: 05/16/24 Source: Developed by Drs. Michael Prakash, Michelle Motley, Jose Tabor and colleagues, with an educational ariel from [employer] Review of Systems Const All systems reviewed & are unremarkable except as noted in HPI and below Neuro Denies Sensory deficit (Neuro) Physical exam (Primary Care) Vital Signs: Last Vital Signs Pulse 73 11/23/24 12:33 BP 122/72 11/23/24 12:33 Pulse Ox 98 11/23/24 12:33 BMI result Body Mass Index 30.0 Tobacco/Smoking Status: Tobacco use Status Tobacco use date assessed 09/14/24 11/23/24 12:37 Patient Tobacco Use Status Never used Tobacco 11/23/24 12:37 e-Cigarette/Vaping Use Never Used 11/23/24 12:37 Thrive Assessment: Date of Thrive Assessment Date Thrive assessed 11/23/24 11/23/24 12:37 Currently or been in a relationship where the following occur: No concerns reported Const General: no acute distress Nutritional Appearance: obese Orientation/consciousness: patient oriented x3 HENMT Head: Yes normocephalic General nose exam: Normal external nose present Face and sinus: Yes face symmetric Mouth: oropharynx normal and moist mucous membranes Eyes General: appearance normal, both eyes and all related structures Neck Other: Raised nodular mass on posterior neck, slightly tender to palpation, no active drainage Neck: Yes full ROM, Yes no lymphadenopathy and Yes supple Resp Auscultation: clear to auscultation bilaterally Cardio Other: S1-S2 present regular rate and rhythm GI Other: Normal bowel sounds, soft, nontender, no mass palpated General: Yes no CVA tenderness Back/Spine/Pelvis Back: no CVA tenderness and No back tenderness Neuro General: patient oriented x3 Sensory Exam: No Sensory deficit (Neuro) Extrem General: Yes full ROM and Yes no pedal edema Coding Level of Care Code Est Pt Level 4 (50551) Diagnoses Mass in neck R22.1 Obesity (BMI 30.0-34.9) E66.811 Assessment & Plan Assessment & Plan (1) Mass in neck: Code(s): R22.1 - Localized swelling, mass and lump, neck Category: Medical (2) Obesity (BMI 30.0-34.9): Code(s): E66.811 - Obesity, class 1 Category: Medical Plan A referral to a general surgeon for surgical removal was made , as the mass has been enlarging and causing discomfort. The patient is advised not to apply pressure on the mass. For weight management, t patient will continue using Wegovy, which has been effective in weight reduction and improving metabolic parameters. He has been advised to maintain regular follow-ups to monitor weight and metabolic health. Patient was informed and verbally consented to the use of an ambient scribe for clinic note documentation during this visit. Orders: Orders Basic Metabolic Panel Fasting 05/13/25 E55.9 - Vitamin D deficiency, unspecified, E66.811 - Obesity, class 1, I10 - Essential (primary) hypertension, K50.812 - Crohn's disease of both small and large intestine with intestinal obstruction, Z86.39 - Personal history of other endocrine, nutritional and metabolic disease Aspartate Amino Transferase 05/13/25 E55.9 - Vitamin D deficiency, unspecified, E66.811 - Obesity, class 1, I10 - Essential (primary) hypertension, K50.812 - Crohn's disease of both small and large intestine with intestinal obstruction, Z86.39 - Personal history of other endocrine, nutritional and metabolic disease Vitamin D 25-OH Total 05/13/25 E55.9 - Vitamin D deficiency, unspecified, E66.811 - Obesity, class 1, I10 - Essential (primary) hypertension, K50.812 - Crohn's disease of both small and large intestine with intestinal obstruction, Z86.39 - Personal history of other endocrine, nutritional and metabolic disease Vitamin B12 and Folate 05/13/25 E55.9 - Vitamin D deficiency, unspecified, E66.811 - Obesity, class 1, I10 - Essential (primary) hypertension, K50.812 - Crohn's disease of both small and large intestine with intestinal obstruction, Z86.39 - Personal history of other endocrine, nutritional and metabolic disease Complete Blood Count Auto Diff 05/13/25 E55.9 - Vitamin D deficiency, unspecified, E66.811 - Obesity, class 1, I10 - Essential (primary) hypertension, K50.812 - Crohn's disease of both small and large intestine with intestinal obstruction, Z86.39 - Personal history of other endocrine, nutritional and metabolic disease Alanine Aminotransferase 05/13/25 E55.9 - Vitamin D deficiency, unspecified, E66.811 - Obesity, class 1, I10 - Essential (primary) hypertension, K50.812 - Crohn's disease of both small and large intestine with intestinal obstruction, Z86.39 - Personal history of other endocrine, nutritional and metabolic disease Lipid Panel 05/13/25 E55.9 - Vitamin D deficiency, unspecified, E66.811 - Obesity, class 1, I10 - Essential (primary) hypertension, K50.812 - Crohn's disease of both small and large intestine with intestinal obstruction, Z86.39 - Personal history of other endocrine, nutritional and metabolic disease Referrals General Surgery Referral R22.1 - Localized swelling, mass and lump, neck Medications: Refilled semaglutide (weight loss) 1 mg (0.5 mL) subcut QWEEK 2 mL 5RF 30 days E66.811 - Obesity, class 1, I10 - Essential (primary) hypertension
== END 2024-11-23 12:56 | disposition home or self-care (01) ==
LOC: HO.HMCC 12:32
PROVIDERS: PCP Internal Medicine; Visit Provider Internal Medicine
DX: R22.1 Localized swelling, mass and lump, neck (principal); E66.811 Obesity, class 1; Z68.30 Body mass index [BMI] 30.0-30.9, adult

== ENCOUNTER 2024-12-22 15:21 | Outpatient (AMB) | payer OTHER, SELFPAY ==
--- NOTE | 2024-12-22 15:17 | A.OFFVIS_ITS ---
Vital Signs 3 12/22/24 15:32 Height 5 ft 11 in Weight 209 lb BMI 29.1 BP 110/70 Blood Pressure Location Lt brachial Position Sitting Intake Visit Reasons: Localized swelling, mass and lump, neck Intake Note: Patient is seen in office for evaluation of a posterior neck mass. Pt c/o: onset for yrs, minimal increase, at times warm to the touch, denies discharge, had one removed in the back Band Singer Required: No Accompanied by: Self / Same As Patient Allergies No Known Allergies Allergy (Verified 12/22/24 15:32) Medication List - Last Reconciled 12/22/24 by Morgan Ferrari MD cyanocobalamin (vitamin B-12) 1,000 mcg IM .[id number] 3 months syringe with needle, safety (BD SafetyGlide Syringe) As directed to inject B-12 monthly Wegovy (semaglutide (weight loss)) 1.7 mg (0.75 mL) subcut QWEEK 30 days NS HPI Comments Details: 59-year-old male patient presenting with a palpable lump in the posterior left neck. This has been there for many years and has gradually increased in size. He reports a previous cyst in his mid back excised after an infection which was a sebaceous cyst. He is requesting excision of this enlarging cyst. He denies any fever, chills, nausea or vomiting. 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 Brother No problems noted. Son No problems noted. Social History Housing: House Alcohol intake: current Alcohol intake frequency: a few times a week Patient Tobacco Use Status: Never used Tobacco e-Cigarette/Vaping Use: Never Used service: No Current occupational status: employed Cognitive needs: No Hearing needs: No Vision needs: Yes Review of Systems Const All systems reviewed & are unremarkable except as noted in HPI and below Physical Exam Const General: cooperative and no acute distress Nutritional Appearance: well nourished Orientation/consciousness: patient oriented x3 Limitations: no limitations HEENT Head: Yes normocephalic and Yes atraumatic Ears: hearing grossly normal bilaterally Neck Neck images: 2 1. 3 cm sebaceous cyst posterior left neck, noninfected, nontender to palpation. Resp Effort & Inspection: normal respiratory effort, no audible wheezes, no cough and no respiratory distress Cardio Jugular venous distension: no JVD GI Inspection: Yes normal to inspection Skin Other: Warm, dry, no rash Neuro General: patient oriented x3 Extrem General: Yes no clubbing, cyanosis or edema Assessment & Plan Assessment & Plan (1) Epidermal inclusion cyst: Code(s): L72.0 - Epidermal cyst Category: Medical Plan 59-year-old male patient presenting with a gradually enlarging epidermal inclusion cyst of the posterior left neck. On examination he is noted to have a 3 cm noninfected sebaceous cyst the posterior left neck. No overlying skin changes are appreciated. I recommended an excision of this lesion as an office based procedure under local anesthesia. After a discussion of the procedure, risks and alternatives, he consents to the surgery. Coding Level of Care Code New Pt Level 4 (12578) Diagnoses Epidermal inclusion cyst L72.0
[2024-12-22 15:32] VITALS: BP 110/70; BMI 29.1
== END 2024-12-22 17:16 | disposition home or self-care (01) ==
LOC: HO.HGS 15:21
PROVIDERS: PCP Internal Medicine; Visit Provider Surgery
DX: L72.0 Epidermal cyst (principal)
CPT/HCPCS: 99204

== ENCOUNTER 2025-01-31 09:01 | Outpatient (REF) | payer OTHER, SELFPAY | END 2025-01-31 09:02 | disposition home or self-care (01) | LOC: HO.LNP 09:01 | PROVIDERS: Visit Provider Surgery | DX: L72.0 Epidermal cyst (principal) | CPT/HCPCS: 11423; 88304 ==

== ENCOUNTER 2025-01-31 09:09 | Outpatient (AMB) | payer OTHER, SELFPAY ==
--- NOTE | 2025-01-31 09:15 | MHC.OFFVIS ---
Vital Signs 01/31/25 09:31 Height 5 ft 11 in Weight 212 lb BMI 29.6 BP 122/77 Blood Pressure Location Lt brachial Position Sitting Pulse 70 Intake Visit Reasons: excision sebaceous cyst of the neck Intake Note: Patient is seen for office procedure: excision of epidermal inclusion cyst of the posterior left neck. Pt c/o: no concerns. 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 Brother No problems noted. Son No problems noted. Social History Housing: House Alcohol intake: current Alcohol intake frequency: a few times a week Patient Tobacco Use Status: Never used Tobacco e-Cigarette/Vaping Use: Never Used service: No Current occupational status: employed Cognitive needs: No Hearing needs: No Vision needs: Yes Physical Exam Vital Signs: Last Vital Signs Pulse 70 01/31/25 09:31 BP 122/77 01/31/25 09:31 BMI result Body Mass Index 29.6 Neck Other: 3 cm cyst posterior left neck Neck images:  1. 3 cm sebaceous cyst posterior left neck Office Procedures Excision Details: Preoperative diagnosis: Epidermal inclusion cyst posterior left neck Postoperative diagnosis: Same Procedure: Excision of epidermal inclusion cyst posterior left neck Surgeon: Morgan Ferrari MD Primary Care Pediatrician: None Anesthesia: Lidocaine 1% with epinephrine Indications for procedure: 59-year-old male patient presenting with a gradually enlarging epidermal inclusion cyst of the posterior left neck. Patient has requested excision of this enlarging lesion Operative findings: 3 cm epidermal inclusion cyst posterior left neck Specimen: Epidermal inclusion cyst posterior left neck Estimated blood loss: 2 mL Complications: None Procedure details: Patient was brought to the procedure room and placed in a right lateral decubitus position. The patient confirmed the site of surgery in the posterior left neck. After assuring informed consent, the skin was prepped with Betadine and draped in a sterile fashion. Local anesthesia was infiltrated circumferentially around the cyst. An elliptical incision oriented transversely was then created with a 15 blade. This carried down through subcutaneous tissue and around the cyst wall. The cyst was completely excised and passed off the table. This was sent to pathology for further examination. Dermis was then reapproximated using a 3-0 Polysorb suture. Skin was then closed using interrupted 3-0 nylon sutures. A 2 x 2 gauze and Tegaderm were then applied. The patient tolerated the procedure well. He was discharged to home in stable condition. [id number] scalp/neck/hands/feet/genitalia 2.1cm-3cm Procedure code (CPT) selection complete Assessment & Plan Assessment & Plan (1) Epidermal inclusion cyst: Code(s): L72.0 - Epidermal cyst Category: Medical Plan Patient will return in approximately 1 week for suture removal. He may remove the Tegaderm in 1-2 days and leave the wound open. He may shower as usual. Orders: Orders Surgical Today L72.0 - Epidermal cyst Coding Level of Care Code Procedure Only Diagnoses Epidermal inclusion cyst L72.0 CPT Codes Scalp/Neck/Hands/Feet/Genetalia - CPT: 80661-[id number] scalp/neck/hands/feet/genitalia 2.1cm-3cm ([id number])
[2025-01-31 09:31] VITALS: BP 122/77; PULSE 70; BMI 29.6
== END 2025-01-31 09:50 | disposition home or self-care (01) ==
LOC: HO.HGS 09:09
PROVIDERS: PCP Internal Medicine; Visit Provider Surgery
DX: L72.0 Epidermal cyst (principal)
CPT/HCPCS: 11423

== ENCOUNTER 2025-02-07 09:13 | Outpatient (AMB) | payer OTHER, SELFPAY ==
--- NOTE | 2025-02-07 09:17 | MHC.OFFVIS ---
Vital Signs 02/07/25 09:34 Height 5 ft 11 in Weight 213 lb BMI 29.7 BP 151/84 H Blood Pressure Location Rt brachial Position Sitting Pulse 82 Intake Visit Reasons: post exc sebaceous cyst of the neck (off proc) Intake Note: Patient is seen in office for post op visit post excision of epidermal inclusion cyst of the posterior left neck. Patient c/o: reports incision healing well. Denies bleeding, oozing, pain. WLE (NAHOMI): 01-31-2025 Fire Management Officer Required: No Accompanied by: Self / Same As Patient Allergies No Known Allergies Allergy (Verified 02/07/25 09:34) HPI HPI post exc sebaceous cyst of the neck (off proc): Details: Doing well. Initially had some bleeding on the 1st day but this is resolved. Otherwise not feeling any pain, has noticed over the last day or so that it has become itchy, feels some pulling of the sutures. Has been difficult to drive when he needs to rotate his head. Denies fevers or chills. Denies drainage, redness at the incision site. 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 Brother No problems noted. Son No problems noted. Social History Housing: House Alcohol intake: current Alcohol intake frequency: a few times a week Patient Tobacco Use Status: Never used Tobacco e-Cigarette/Vaping Use: Never Used service: No Current occupational status: employed Cognitive needs: No Hearing needs: No Vision needs: Yes Review of Systems Const All systems reviewed & are unremarkable except as noted in HPI and below Physical Exam Vital Signs: Last Vital Signs Pulse 82 02/07/25 09:34 BP 151/84 H 02/07/25 09:34 BMI result Body Mass Index 29.7 Const General: comfortable and no acute distress Orientation/consciousness: patient oriented x3 Neck Neck images:  1. Epidural inclusion cyst excision site. Sutures in place. Excision site intact. No surrounding erythema, nontender. No fluid collection, no drainage or bleeding. Neuro General: patient oriented x3 Assessment & Plan Assessment & Plan (1) Epidermal inclusion cyst: Code(s): L72.0 - Epidermal cyst Category: Medical Plan 59-year-old male s/p excision of benign epidermal inclusion cyst on the left neck on 01/[address] Ferrari returning to the office for routine follow up and suture removal following excision of the cyst. Patient doing well. Denying pain, with a past few days has had some itching and pulling of the sutures. He has not had any bleeding or drainage from the incision site. Denying fevers or chills at home. On exam the incision site appears to be healing well. Sutures remain in place. There was no surrounding erythema or discharge noted. No concern for infection at this time. We reviewed the results from pathology showing, benign epidermal inclusion cyst. Patient declined copy of these results. I removed the sutures in the office without complication. I did place a Band-Aid for any spot bleeding that may happen after the suture removal. Instructed him to keep this clean and dry over the next few weeks. Can gently wash with soap and water. At this point no longer requiring routine follow up, can follow up as needed with any concerns in the future Coding Level of Care Code Est Pt Level 3 (46642) Diagnoses Epidermal inclusion cyst L72.0
[2025-02-07 09:34] VITALS: BP 151/84; PULSE 82; BMI 29.7
== END 2025-02-07 09:38 | disposition home or self-care (01) ==
LOC: HO.HGS 09:14
PROVIDERS: PCP Internal Medicine; Visit Provider Surgery
DX: L72.0 Epidermal cyst (principal)
CPT/HCPCS: 99024